=== PATIENT | male | born 1965 | race Caucasian/White ===

== ENCOUNTER → 2020-05-22 09:03 | Outpatient (BNVA) | payer MEDICARE, MEDICAID, SELFPAY | PROVIDERS: PCP Family Medicine; Referring Provider Family Medicine; Visit Provider Dietitian, Registered | DX: Z76.89 Persons encountering health services in other specified circumstances (principal) ==

== ENCOUNTER → 2020-07-26 08:51 | Outpatient (BNVA) | payer MEDICARE, MEDICAID, SELFPAY | PROVIDERS: PCP Family Medicine; Visit Provider Dietitian, Registered | DX: Z76.89 Persons encountering health services in other specified circumstances (principal) ==

== ENCOUNTER → 2020-09-05 11:26 | Outpatient (REF) | payer MEDICARE, MEDICAID, SELFPAY ==
--- NOTE | 2020-09-05 11:37 | ECG_ITS ---
Test Reason : DIABETES Blood Pressure : / mmHG Vent. Rate : 066 BPM Atrial Rate : 066 BPM P-R Int : 136 ms QRS Dur : 090 ms QT Int : 410 ms P-R-T Axes : 053 -21 052 degrees QTc Int : 429 ms Normal sinus rhythm Normal ECG When compared with ECG of 19-JUN-2016 09:29, No significant change was found Referred By: Charly Mendiola Electronically Signed By:ATILIO GONZALES
== END ==
LOC: HO.CARD 11:26
PROVIDERS: PCP Family Medicine; Visit Provider Family Medicine
DX: Z01.818 Encounter for other preprocedural examination (principal); E11.9 Type 2 diabetes mellitus without complications
CPT/HCPCS: 93005

== ENCOUNTER 2020-10-04 15:18 | Outpatient (REF) | payer MEDICARE, MEDICAID, SELFPAY | END 2020-10-04 15:19 | disposition home or self-care (01) | LOC: HO.LAB 15:18 | PROVIDERS: Visit Provider Internal Medicine | DX: Z20.822 Contact with and (suspected) exposure to COVID-19 (principal) | CPT/HCPCS: 36415; C9803; U0003; U0005 ==

== ENCOUNTER 2020-12-18 09:18 | Outpatient (REF) | payer MEDICARE, MEDICAID, SELFPAY ==
[2020-12-18 10:16] LABS: Estimated Average Glucose 103 mg/dL; Hemoglobin A1c % 5.2 %
[2020-12-18 10:27] LABS: Creatinine Urine 92.25 mg/dL; Microalbum/Creatinine Ratio Ur 17.3 ug/mg cr
[2020-12-18 10:33] LABS: Alanine Aminotransferase 22 U/L (0-40); Anion Gap 12 (12-20); Aspartate Amino Transferase 22 U/L (5-37); Blood Urea Nitrogen 26 mg/dL (9-16); Carbon Dioxide 26 mmol/L (22-29); Chloride 106 mmol/L (96-108); Cholesterol 157 mg/dL; Estimated Glomerular Filt Rate > 60; Glucose Fasting 104 mg/dL (60-99); HDL Cholesterol 47 mg/dL; LDL Cholesterol Calculated 92 mg/dl; Potassium 4.2 mmol/L (3.3-5.1); Sodium 140 mmol/L (135-145); Triglycerides 92 mg/dL
== END 2020-12-18 09:19 | disposition home or self-care (01) ==
LOC: HO.10HDL 09:18
PROVIDERS: Visit Provider Family Medicine
DX: E11.9 Type 2 diabetes mellitus without complications (principal); E78.00 Pure hypercholesterolemia, unspecified; I10 Essential (primary) hypertension; Z79.899 Other long term (current) drug therapy
CPT/HCPCS: 36415; 80051; 80061; 82043; 82550; 82565; 82947; 83036; 84450; 84460; 84520

== ENCOUNTER → 2021-01-31 08:59 | Outpatient (BNVA) | payer MEDICARE, MEDICAID, SELFPAY | PROVIDERS: PCP Family Medicine; Visit Provider Dietitian, Registered | DX: E11.9 Type 2 diabetes mellitus without complications (principal); Z68.26 Body mass index [BMI] 26.0-26.9, adult | CPT/HCPCS: 97803 ==

== ENCOUNTER 2021-03-13 13:04 | Outpatient (REF) | payer MEDICARE, MEDICAID, SELFPAY ==
--- NOTE | ~2021-03-13 | XR_ITS ---
EXAMINATION: XR FOOT, LEFT CLINICAL INFORMATION: Left foot swelling COMPARISON: None TECHNIQUE: AP, lateral, and oblique views of the left foot. FINDINGS: The bones and soft tissues are normal. No fracture. Alignment is anatomic. Small retrocalcaneal enthesophyte. Joint spaces are maintained. XR/XR foot LT min 3V IMPRESSION: Small retrocalcaneal enthesophyte.
== END 2021-03-13 13:05 | disposition home or self-care (01) ==
LOC: HO.XRAY 13:04
PROVIDERS: PCP Family Medicine; Visit Provider Family Medicine
DX: M79.89 Other specified soft tissue disorders (principal)
CPT/HCPCS: 73630

== ENCOUNTER 2021-04-23 09:19 | Outpatient (REF) | payer MEDICARE, MEDICAID, SELFPAY ==
[2021-04-23 11:02] LABS: Estimated Average Glucose 103 mg/dL; Hemoglobin A1c % 5.2 %
[2021-04-23 11:11] LABS: Alanine Aminotransferase 18 U/L (0-40); Cholesterol 137 mg/dL; Estimated Glomerular Filt Rate > 60; Glucose Fasting 92 mg/dL (60-99); HDL Cholesterol 40 mg/dL; LDL Cholesterol Calculated 75 mg/dl; Triglycerides 111 mg/dL
== END 2021-04-23 09:20 | disposition home or self-care (01) ==
LOC: HO.10HDL 09:19
PROVIDERS: Visit Provider Family Medicine
DX: E11.9 Type 2 diabetes mellitus without complications (principal); E78.00 Pure hypercholesterolemia, unspecified; Z79.899 Other long term (current) drug therapy
CPT/HCPCS: 36415; 80061; 82550; 82565; 82947; 83036; 84460

== ENCOUNTER → 2021-08-04 10:17 | Outpatient (BNVA) | payer MEDICARE, MEDICAID, SELFPAY | PROVIDERS: PCP Family Medicine; Visit Provider Dietitian, Registered | DX: E11.9 Type 2 diabetes mellitus without complications (principal) | CPT/HCPCS: 97803 ==

== ENCOUNTER 2021-09-17 09:01 | Outpatient (REF) | payer MEDICARE, MEDICAID, SELFPAY ==
[2021-09-17 10:37] LABS: Estimated Average Glucose 105 mg/dL; Hemoglobin A1c % 5.3 %
[2021-09-17 10:46] LABS: Alanine Aminotransferase 24 U/L (0-40); Anion Gap 10 (12-20); Aspartate Amino Transferase 24 U/L (5-37); Blood Urea Nitrogen 23 mg/dL (9-16); Carbon Dioxide 29 mmol/L (22-29); Chloride 106 mmol/L (96-108); Estimated Glomerular Filt Rate > 60; Glucose Fasting 97 mg/dL (60-99); Potassium 4.3 mmol/L (3.3-5.1); Sodium 141 mmol/L (135-145)
== END 2021-09-17 09:02 | disposition home or self-care (01) ==
LOC: HO.10HDL 09:01
PROVIDERS: Visit Provider Family Medicine
DX: I10 Essential (primary) hypertension (principal); E11.9 Type 2 diabetes mellitus without complications; K75.81 Nonalcoholic steatohepatitis (NASH)
CPT/HCPCS: 36415; 80051; 82565; 82947; 83036; 84450; 84460; 84520

== ENCOUNTER 2021-11-06 10:09 | Outpatient (REF) | payer MEDICARE, MEDICAID, SELFPAY ==
[2021-11-06 10:57] LABS: COVID-19 Test Negative (Negative)
== END 2021-11-06 10:10 | disposition home or self-care (01) ==
LOC: HO.LAB 10:09
PROVIDERS: Visit Provider Internal Medicine
DX: Z20.822 Contact with and (suspected) exposure to COVID-19 (principal)
CPT/HCPCS: 87635; C9803

== ENCOUNTER 2021-11-21 12:47 | Outpatient (REF) | payer MEDICARE, MEDICAID, SELFPAY ==
--- NOTE | ~2021-11-21 | XR_ITS ---
EXAMINATION: 1. RADIOGRAPHS CHEST 2. RADIOGRAPHS LUMBAR SPINE CLINICAL INFORMATION: Lumbar spine x-rays 05/17/2012 COMPARISON: None TECHNIQUE: 2 views of the chest and 5 views of the lumbar spine were obtained. FINDINGS: Chest: Cardiac silhouette is normal in size. The lungs are well aerated. There is no lobar consolidation. No pleural effusion or pneumothorax. Mild degenerative changes of the thoracic spine. Lumbar spine: 5 nonrib-bearing lumbar vertebral bodies are visualized. Alignment of the lumbar spine is within normal limits. Lumbar vertebral body heights are maintained. There is mild narrowing of the L4/L5 and L5/S1 disc space heights. Mild degenerative changes of the posterior elements of the lower lumbar spine. Small pelvic calcifications are likely vascular in nature. XR/XR chest 2V IMPRESSION: -No acute pulmonary pathology. -Mild degenerative changes of the lower lumbar spine.
--- NOTE | ~2021-11-21 | XR_ITS ---
EXAMINATION: 1. RADIOGRAPHS CHEST 2. RADIOGRAPHS LUMBAR SPINE CLINICAL INFORMATION: Lumbar spine x-rays 05/17/2012 COMPARISON: None TECHNIQUE: 2 views of the chest and 5 views of the lumbar spine were obtained. FINDINGS: Chest: Cardiac silhouette is normal in size. The lungs are well aerated. There is no lobar consolidation. No pleural effusion or pneumothorax. Mild degenerative changes of the thoracic spine. Lumbar spine: 5 nonrib-bearing lumbar vertebral bodies are visualized. Alignment of the lumbar spine is within normal limits. Lumbar vertebral body heights are maintained. There is mild narrowing of the L4/L5 and L5/S1 disc space heights. Mild degenerative changes of the posterior elements of the lower lumbar spine. Small pelvic calcifications are likely vascular in nature. XR/XR lumbar spine 4V min IMPRESSION: -No acute pulmonary pathology. -Mild degenerative changes of the lower lumbar spine.
== END 2021-11-21 12:48 | disposition home or self-care (01) ==
LOC: HO.XRAY 12:47
PROVIDERS: PCP Family Medicine; Visit Provider Family Medicine
DX: M54.50 Low back pain, unspecified (principal); F17.200 Nicotine dependence, unspecified, uncomplicated
CPT/HCPCS: 71046; 72110

== ENCOUNTER 2022-01-15 08:52 | Outpatient (REF) | payer MEDICARE, MEDICAID, SELFPAY ==
[2022-01-15 09:05] LABS: MANUAL DIFF FLAG NO
[2022-01-15 09:44] LABS: Basophils Absolute Auto 0.1 X10*3/uL (0.0-0.2); Basophils Percent Auto 0.7 % (0-2); Eosinophils Absolute Auto 0.2 X10*3/uL (0.0-0.4); Eosinophils Percent Auto 2.5 % (0-4); Hematocrit 41.2 % (42.0-52.0); Hemoglobin 14.1 g/dl (14.0-18.0); Imm Gran Abs Auto 0.02 X10*3/uL (0.00-0.03); Imm Gran Pct Auto 0.3 % (0.0-0.4); Lymphocytes Absolute Auto 2.7 X10*3/uL (1.2-4.9); Lymphocytes Percent Auto 39.2 % (20-40); Mean Corpuscular HGB Conc 34.2 g/dl (31.0-36.0); Mean Corpuscular Hemoglobin 29.9 pg (27.0-33.0); Mean Corpuscular Volume 87.5 fL (80.0-98.0); Mean Platelet Volume 11.4 fL (9.4-12.4); Monocytes Absolute Auto 0.5 X10*3/uL (0.1-1.2); Monocytes Percent Auto 7.5 % (2-11); Neutrophils Absolute Auto 3.4 x10*3/uL (2.0-8.3); Neutrophils Percent Auto 49.8 % (45-73); Platelet Count 151 X10*3/uL (160-400); Red Blood Count 4.71 X10*6/uL (4.60-5.80); Red Cell Distribution Width 13.9 % (11.0-16.0); White Blood Count 6.8 X10*3/uL (4.8-10.8)
[2022-01-15 09:46] LABS: Estimated Average Glucose 105 mg/dL; Hemoglobin A1c % 5.3 %
[2022-01-15 10:18] LABS: Cholesterol 224 mg/dL; Glucose Fasting 102 mg/dL (60-99); HDL Cholesterol 41 mg/dL; LDL Cholesterol Calculated 166 mg/dl; Triglycerides 88 mg/dL
[2022-01-15 10:27] LABS: Creatinine Urine 70.09 mg/dL; Microalbum/Creatinine Ratio Ur 7.1 ug/mg cr
== END 2022-01-15 08:53 | disposition home or self-care (01) ==
LOC: HO.LAB 08:52
PROVIDERS: PCP Family Medicine; Visit Provider Family Medicine
DX: E78.00 Pure hypercholesterolemia, unspecified (principal); D64.9 Anemia, unspecified; E11.9 Type 2 diabetes mellitus without complications
CPT/HCPCS: 36415; 80061; 82043; 82947; 83036; 85025

== ENCOUNTER → 2022-01-19 10:11 | Outpatient (BNVA) | payer MEDICARE, MEDICAID, SELFPAY | PROVIDERS: PCP Family Medicine; Visit Provider Dietitian, Registered | DX: E11.9 Type 2 diabetes mellitus without complications (principal) | CPT/HCPCS: 97803 ==

== ENCOUNTER 2022-03-03 08:42 | Outpatient (REF) | payer MEDICARE, MEDICAID, SELFPAY ==
[2022-03-03 10:42] LABS: MANUAL DIFF FLAG NO
[2022-03-03 10:48] LABS: Basophils Absolute Auto 0.1 X10*3/uL (0.0-0.2); Basophils Percent Auto 0.6 % (0-2); Eosinophils Absolute Auto 0.2 X10*3/uL (0.0-0.4); Eosinophils Percent Auto 2.2 % (0-4); Hematocrit 41.4 % (42.0-52.0); Hemoglobin 13.9 g/dl (14.0-18.0); Imm Gran Abs Auto 0.02 X10*3/uL (0.00-0.03); Imm Gran Pct Auto 0.2 % (0.0-0.4); Lymphocytes Absolute Auto 3.5 X10*3/uL (1.2-4.9); Lymphocytes Percent Auto 43.5 % (20-40); Mean Corpuscular HGB Conc 33.6 g/dl (31.0-36.0); Mean Corpuscular Hemoglobin 29.4 pg (27.0-33.0); Mean Corpuscular Volume 87.5 fL (80.0-98.0); Mean Platelet Volume 11.7 fL (9.4-12.4); Monocytes Absolute Auto 0.6 X10*3/uL (0.1-1.2); Neutrophils Absolute Auto 3.7 x10*3/uL (2.0-8.3); Neutrophils Percent Auto 46.5 % (45-73); Platelet Count 131 X10*3/uL (160-400); Red Blood Count 4.73 X10*6/uL (4.60-5.80); Red Cell Distribution Width 13.8 % (11.0-16.0); White Blood Count 8.1 X10*3/uL (4.8-10.8)
[2022-03-03 10:56] LABS: Estimated Average Glucose 105 mg/dL; Hemoglobin A1c % 5.3 %
[2022-03-03 10:59] LABS: Alanine Aminotransferase 21 U/L (0-40); Albumin Level 4.5 g/dL (3.5-5.0); Alkaline Phosphatase 71 U/L (39-117); Anion Gap 13 (12-20); Aspartate Amino Transferase 22 U/L (5-37); Bilirubin Total 0.4 mg/dL (0.0-1.0); Blood Urea Nitrogen 21 mg/dL (9-16); Calcium 9.7 mg/dL (8.4-10.2); Carbon Dioxide 25 mmol/L (22-29); Chloride 105 mmol/L (96-108); Cholesterol 231 mg/dL; Estimated Glomerular Filt Rate > 60; Glucose Fasting 95 mg/dL (60-99); HDL Cholesterol 40 mg/dL; LDL Cholesterol Calculated 168 mg/dl; Potassium 4.2 mmol/L (3.3-5.1); Sodium 139 mmol/L (135-145); Total Protein 7.5 g/dL (6.5-8.0); Triglycerides 116 mg/dL
== END 2022-03-03 08:43 | disposition home or self-care (01) ==
LOC: HO.10HDL 08:42
PROVIDERS: Visit Provider Family Medicine
DX: E11.9 Type 2 diabetes mellitus without complications (principal); E78.00 Pure hypercholesterolemia, unspecified; R55 Syncope and collapse
CPT/HCPCS: 36415; 80053; 80061; 83036; 85025

== ENCOUNTER 2022-03-31 12:12 | Outpatient (REF) | payer MEDICARE, MEDICAID, SELFPAY ==
--- NOTE | ~2022-03-31 | XR_ITS ---
EXAMINATION: XR CERVICAL SPINE CLINICAL INFORMATION: Right arm numbness, radiculopathy. COMPARISON: MR cervical spine 06/02/2006. TECHNIQUE: The cervical spine is imaged in 8 views. FINDINGS: Normal cervical lordosis. Vertebral bodies normal in height. No cervical vertebral compression, spondylolisthesis, destructive process, or prevertebral soft tissue swelling. Odontoid appears intact. There are degenerative disc changes with disc narrowing and anterior and posterior vertebral spurring C5-C6 and greater at C6-C7. Oblique view show bilateral foraminal spurring at these levels and possibly right side C4-C5 as well. No cervical rib. XR/XR cervical spine min 6V IMPRESSION: Degenerative disc changes C5-C6 and C6-C7. Bilateral foraminal spurring C5-C6 and C6-C7, probable right C4-C5.
== END 2022-03-31 12:13 | disposition home or self-care (01) ==
LOC: HO.XRAY 12:12
PROVIDERS: PCP Family Medicine; Visit Provider Family Medicine
DX: R20.0 Anesthesia of skin (principal); M54.10 Radiculopathy, site unspecified
CPT/HCPCS: 72052

== ENCOUNTER 2022-04-06 15:44 | Outpatient (REF) | payer MEDICARE, MEDICAID, SELFPAY ==
--- NOTE | ~2022-04-06 | XR_ITS ---
EXAMINATION: XR CHEST CLINICAL INFORMATION: Smoker COMPARISON: 11/21/2021 TECHNIQUE: 2 views of the chest were obtained. FINDINGS: The lungs are well expanded. There is no focal consolidation, edema, or effusion. Probable calcified granuloma at the right base, unchanged. No pneumothorax. The cardiomediastinal silhouette is within normal limits of size with a calcified aorta. No acute osseous abnormality. XR/XR chest 2V IMPRESSION: No acute pulmonary finding.
[2022-04-06 17:16] LABS: Blood Urea Nitrogen 22 mg/dL (9-16); Estimated Glomerular Filt Rate > 60
[2022-04-06 17:52] LABS: Erythrocyte Sedimentation Rate 14 MM/HR (0-15)
== END 2022-04-06 15:45 | disposition home or self-care (01) ==
LOC: HO.XRAY 15:44
PROVIDERS: PCP Family Medicine; Visit Provider Family Medicine
DX: G62.9 Polyneuropathy, unspecified (principal); F17.200 Nicotine dependence, unspecified, uncomplicated
CPT/HCPCS: 36415; 71046; 82565; 84520; 85652

== ENCOUNTER 2022-06-26 11:38 | Outpatient (REF) | payer MEDICARE, MEDICAID, SELFPAY ==
[2022-06-26 12:20] LABS: COVID-19 Test Negative (Negative); IDNOW Serial# 16C4AD1C
== END 2022-06-26 11:39 | disposition home or self-care (01) ==
LOC: HO.LAB 11:38
PROVIDERS: Visit Provider Internal Medicine
DX: Z20.822 Contact with and (suspected) exposure to COVID-19 (principal)
CPT/HCPCS: 87635; C9803

== ENCOUNTER → 2022-07-20 10:01 | Outpatient (BNVA) | payer MEDICARE, MEDICAID, SELFPAY | PROVIDERS: PCP Family Medicine; Visit Provider Dietitian, Registered | DX: E11.9 Type 2 diabetes mellitus without complications (principal); Z71.3 Dietary counseling and surveillance | CPT/HCPCS: 97803 ==

== ENCOUNTER 2022-09-23 07:34 | Outpatient (REF) | payer MEDICARE, MEDICAID, SELFPAY ==
[2022-09-23 07:45] LABS: MANUAL DIFF FLAG NO
[2022-09-23 08:11] LABS: Basophils Absolute Auto 0.1 X10*3/uL (0.0-0.2); Eosinophils Absolute Auto 0.2 X10*3/uL (0.0-0.4); Eosinophils Percent Auto 2.9 % (0-4); Hematocrit 40.7 % (42.0-52.0); Hemoglobin 13.8 g/dl (14.0-18.0); Imm Gran Abs Auto 0.02 X10*3/uL (0.00-0.03); Imm Gran Pct Auto 0.3 % (0.0-0.4); Lymphocytes Percent Auto 48.7 % (20-40); Mean Corpuscular HGB Conc 33.9 g/dl (31.0-36.0); Mean Corpuscular Hemoglobin 29.7 pg (27.0-33.0); Mean Corpuscular Volume 87.5 fL (80.0-98.0); Mean Platelet Volume 11.5 fL (9.4-12.4); Monocytes Absolute Auto 0.4 X10*3/uL (0.1-1.2); Monocytes Percent Auto 7.1 % (2-11); Neutrophils Absolute Auto 2.5 x10*3/uL (2.0-8.3); Platelet Count 126 X10*3/uL (160-400); Red Blood Count 4.65 X10*6/uL (4.60-5.80); White Blood Count 6.2 X10*3/uL (4.8-10.8)
[2022-09-23 08:16] LABS: Estimated Average Glucose 111 mg/dL; Hemoglobin A1c % 5.5 %
[2022-09-23 08:29] LABS: Alanine Aminotransferase 17 U/L (0-40); Aspartate Amino Transferase 19 U/L (5-37); Estimated Glomerular Filt Rate > 60; Glucose Fasting 94 mg/dL (60-99)
== END 2022-09-23 07:35 | disposition home or self-care (01) ==
LOC: HO.LAB 07:34
PROVIDERS: PCP Family Medicine; Visit Provider Family Medicine
DX: E11.9 Type 2 diabetes mellitus without complications (principal); R53.83 Other fatigue; K75.81 Nonalcoholic steatohepatitis (NASH)
CPT/HCPCS: 36415; 82565; 82947; 83036; 84134; 84450; 84460; 85025

== ENCOUNTER 2023-04-07 08:32 | Outpatient (REF) | payer MEDICARE, MEDICAID, SELFPAY ==
[2023-04-07 10:15] LABS: MANUAL DIFF FLAG NO
[2023-04-07 10:22] LABS: Basophils Percent Auto 0.7 % (0-2); Eosinophils Absolute Auto 0.2 X10*3/uL (0.0-0.4); Eosinophils Percent Auto 2.7 % (0-4); Hematocrit 42.4 % (42.0-52.0); Hemoglobin 14.1 g/dl (14.0-18.0); Lymphocytes Absolute Auto 2.6 X10*3/uL (1.2-4.9); Lymphocytes Percent Auto 43.9 % (20-40); Mean Corpuscular HGB Conc 33.3 g/dl (31.0-36.0); Mean Corpuscular Hemoglobin 29.9 pg (27.0-33.0); Mean Corpuscular Volume 89.8 fL (80.0-98.0); Mean Platelet Volume 11.7 fL (9.4-12.4); Monocytes Absolute Auto 0.4 X10*3/uL (0.1-1.2); Monocytes Percent Auto 6.8 % (2-11); Neutrophils Absolute Auto 2.7 x10*3/uL (2.0-8.3); Neutrophils Percent Auto 45.9 % (45-73); Platelet Count 129 X10*3/uL (160-400); Red Blood Count 4.72 X10*6/uL (4.60-5.80); White Blood Count 5.9 X10*3/uL (4.8-10.8)
[2023-04-07 10:42] LABS: Alanine Aminotransferase 17 U/L (0-40); Albumin Level 4.2 g/dL (3.5-5.0); Alkaline Phosphatase 67 U/L (39-117); Anion Gap 11 (12-20); Aspartate Amino Transferase 20 U/L (5-37); Bilirubin Total 0.4 mg/dL (0.0-1.0); Blood Urea Nitrogen 17 mg/dL (9-16); Calcium 10.1 mg/dL (8.4-10.2); Carbon Dioxide 27 mmol/L (22-29); Chloride 106 mmol/L (96-108); Estimated Glomerular Filt Rate > 60; Glucose Fasting 108 mg/dL (60-99); Potassium 4.1 mmol/L (3.3-5.1); Sodium 140 mmol/L (135-145); Total Protein 7.5 g/dL (6.5-8.0)
[2023-04-07 11:03] LABS: Erythrocyte Sedimentation Rate 20 MM/HR (0-15)
[2023-04-07 11:19] LABS: Estimated Average Glucose 103 mg/dL; Hemoglobin A1c % 5.2 % (<6.0)
== END 2023-04-07 08:33 | disposition home or self-care (01) ==
LOC: HO.10HDL 08:32
PROVIDERS: Visit Provider Family Medicine
DX: E11.9 Type 2 diabetes mellitus without complications (principal); R15.9 Full incontinence of feces; R53.1 Weakness
CPT/HCPCS: 36415; 80053; 83036; 85025; 85652

== ENCOUNTER 2023-04-21 15:54 | Outpatient (REF) | payer MEDICARE, MEDICAID, SELFPAY ==
[2023-04-23 16:09] LABS: Immunoglobulin A 230 mg/dL (47-310)
[2023-04-23 18:08] LABS: Transglutaminase Ab IgG <1.0 U/mL; Transglutaminase IgA <1.0 U/mL
[2023-04-24 12:39] LABS: Endomysial IgA Antibody Negative (Negative)
[2023-04-26 07:04] LABS: Gliadin Deamidated IgA Ab 2.5 U/mL; Gliadin Deamidated IgG Ab <1.0 U/mL
== END 2023-04-21 15:55 | disposition home or self-care (01) ==
LOC: HO.LAB 15:54
PROVIDERS: PCP Family Medicine; Visit Provider Internal Medicine
DX: R19.8 Other specified symptoms and signs involving the digestive system and abdomen (principal); R19.4 Change in bowel habit
CPT/HCPCS: 36415; 82784; 86231; 86258; 86364

== ENCOUNTER 2023-05-05 13:04 | Outpatient (REF) | payer MEDICARE, MEDICAID, SELFPAY ==
--- NOTE | ~2023-05-05 | XR_ITS ---
EXAMINATION: XR LUMBOSACRAL SPINE CLINICAL INFORMATION: Right leg pain and numbness COMPARISON: Lumbar spine radiograph from 11/21/2021 TECHNIQUE: Three views of the lumbosacral spine. FINDINGS: 5 nonrib-bearing lumbar-type vertebral bodies. No acute visible fracture or dislocation. Mild multilevel degenerative changes greatest at L5-S1 disc space narrowing, endplate sclerosis, osteophyte formation, and lower lumbar spine facet arthropathy. Vertebral body heights and spaces are otherwise maintained. Posterior elements are intact. Paraspinal soft tissues are unremarkable. Atherosclerotic calcifications abdominal aorta. Bowel gas is unremarkable. Pelvic phleboliths are visualized. XR/XR lumbar spine 2-3V IMPRESSION: 1. No acute visible fracture or dislocation. 2. Mild multilevel degenerative changes greatest at L5-S1.
== END 2023-05-05 13:05 | disposition home or self-care (01) ==
LOC: HO.XRAY 13:04
PROVIDERS: PCP Family Medicine; Visit Provider Family Medicine
DX: R20.0 Anesthesia of skin (principal); M79.604 Pain in right leg
CPT/HCPCS: 72100

== ENCOUNTER 2023-07-19 07:28 | Day surgery (SDC) | payer MEDICARE, MEDICAID, SELFPAY ==
--- NOTE | 2023-07-16 10:14 | HO.ANESPROP2 ---
Documented by User: Autumn Johnson NP 07/16/23 10:14 HPI - Anesthesia Eval Consult details Narrative: 58yo M for Colonoscopy PMFSH Active Problems Active Problems: All Active Problems (Updated 07/16/23 @ 08:59 by Berkley Pierre RN) Diabetes (Acute) Past Medical History Medical History Acute insomnia GERD (gastroesophageal reflux disease) Diabetes Learning disability Hyperlipidemia Anxiety Depression Surgical History Surgical History History of back surgery History of oral surgery History of colonoscopy Social History Social History Advance Directives: No Advance Directives Information Provided: Yes Meds Allergies Allergy/AdvReac Type Severity Reaction Status Date / Time Penicillins [PENICILLINS] Allergy Unknown UNKNOWN Unverified 05/02/20 15:26 bupropion [From WELLBUTRIN] AdvReac Unknown UNKNOWN Unverified 05/02/20 15:26 Home Medications Medication Instructions Recorded Confirmed Last Taken Type amantadine HCl 100 mg capsule 100 mg PO TID 07/16/23 Unknown History buspirone 10 mg tablet 10 mg PO QAM 07/16/23 Unknown History buspirone 15 mg tablet 15 mg PO BEDTIME 07/16/23 Unknown History fluoxetine 20 mg capsule 20 mg PO DAILY 07/16/23 Unknown History fluoxetine 40 mg capsule 40 mg PO QAM 07/16/23 Unknown History gabapentin 600 mg tablet 600 mg PO BEDTIME 07/16/23 Unknown History melatonin 10 mg capsule 10 mg PO BEDTIME 07/16/23 Unknown History metformin 500 mg tablet 500 mg PO BID 07/16/23 Unknown History omeprazole 40 mg capsule,delayed 40 mg PO DAILY 07/16/23 Unknown History release omeprazole 40 mg capsule,delayed 40 mg PO DAILY 07/16/23 Unknown History release risperidone 2 mg tablet 2 mg PO BEDTIME 07/16/23 Unknown History simvastatin 10 mg tablet 10 mg PO BEDTIME 07/16/23 Unknown History trazodone 100 mg tablet 100 mg PO BEDTIME 07/16/23 Unknown History trazodone 50 mg tablet 50 mg PO BEDTIME 07/16/23 Unknown History Assessment and Plan Assessment Anesthesia Assessment: Chart Reviewed Documented by User: Imelda Reeves MD 07/19/23 08:33 PMF Past Medical History Medical History Acute insomnia GERD (gastroesophageal reflux disease) Diabetes Learning disability Hyperlipidemia Anxiety Depression Family History Family history of problems with anesthesia: No Surgical History Surgical History History of back surgery History of oral surgery History of colonoscopy History of Problems with Anesthesia: No Social History Social History Advance Directives: No Advance Directives Information Provided: Yes Meds Allergies Allergy/AdvReac Type Severity Reaction Status Date / Time Penicillins [PENICILLINS] Allergy Unknown UNKNOWN Unverified 05/02/20 15:26 bupropion [From WELLBUTRIN] AdvReac Unknown UNKNOWN Unverified 05/02/20 15:26 Home Medications Medication Instructions Recorded Confirmed Last Taken Type amantadine HCl 100 mg capsule 100 mg PO TID 07/16/23 Unknown History buspirone 10 mg tablet 10 mg PO QAM 07/16/23 Unknown History buspirone 15 mg tablet 15 mg PO BEDTIME 07/16/23 Unknown History fluoxetine 20 mg capsule 20 mg PO DAILY 07/16/23 Unknown History fluoxetine 40 mg capsule 40 mg PO QAM 07/16/23 Unknown History gabapentin 600 mg tablet 600 mg PO BEDTIME 07/16/23 Unknown History melatonin 10 mg capsule 10 mg PO BEDTIME 07/16/23 Unknown History metformin 500 mg tablet 500 mg PO BID 07/16/23 Unknown History omeprazole 40 mg capsule,delayed 40 mg PO DAILY 07/16/23 Unknown History release omeprazole 40 mg capsule,delayed 40 mg PO DAILY 07/16/23 Unknown History release risperidone 2 mg tablet 2 mg PO BEDTIME 07/16/23 Unknown History simvastatin 10 mg tablet 10 mg PO BEDTIME 07/16/23 Unknown History trazodone 100 mg tablet 100 mg PO BEDTIME 07/16/23 Unknown History trazodone 50 mg tablet 50 mg PO BEDTIME 07/16/23 Unknown History Exam Height,Weight and Vital Signs: Height 5 ft 9 in Weight 79.379 kg Vital Signs Temp Pulse Resp BP Pulse Ox O2 Del Method 07/19/23 08:11 97 F 83 16 114/86 97 Room Air Pertinent Lab Results Pertinent Lab Results: Lab Results 07/19/23 Range/Units 08:01 POC Glucose 114 (60-115) mg/dL Airway Mallampati Class: III TM Dist: >3cm Neck ROM: Full Denture: Upper and Lower Heart: RRR Lungs: CTAB Assessment and Plan Assessment Anesthesia Assessment: Anesthesia Plan Discussed Final Anesthetic Review Family History of Problems with Anesthesia: No History of Problems with Anesthesia: No NPO: Yes ASA Class: II Final Preanesthetic Review: No Changes in Pt Med Stat, Meds/Allgs Chart Reviewed, Consent Obtained/Reviewed and Anes Risks/Benef Reviewed Patient Risk: Intermediate Procedure Risk: Low Assessment/Block/Sedation in SS: Assess/Block/Sedation-SS Anesthetic Plan Anesthetic Plan: MAC: Disposition: Standard PACU
[2023-07-19 08:05] LABS: Glucose, Whole Blood 114 mg/dL (60-115)
[2023-07-19 08:11] VITALS: BP 114/86; PULSE 83; RESP 16; TEMP 36.1; O2SAT 97; BMI 25.8
[2023-07-19] MEDS: Lactated Ringers 1,000 ML 100 ML IVCONT (08:30)
[2023-07-19 09:33] VITALS: BP 96/50; PULSE 62; RESP 16; TEMP 36.4; O2SAT 95
--- NOTE | 2023-07-19 09:40 | PM.OP ---
Brief Operative Note Date of Service: 07/19/23 Pre-op diagnosis: Change in BM's Post-op diagnosis: other (Diverticulosis, R/O microscopic colitis) Procedure: Colonoscopy to the cecum and TI with biopsies Surgeon: Merlin Levy MD Anesthesia: MAC Was an Business Excellence Manager used for this Procedure?: No Estimated blood loss (mL): 2.0 Pathology: other (A. Terminal ileum B. Ascending colon C. Descending colon) Condition: stable Disposition: PACU
[2023-07-19 09:48] VITALS: BP 110/64; PULSE 65; RESP 18; TEMP 36.6; O2SAT 95
--- NOTE | 2023-07-20 13:23 | OP_ITS ---
DATE OF SERVICE: 07/19/2023 SURGEON: Merlin Levy MD INDICATIONS: The patient presents for evaluation of irregular bowel movements and change in bowel habits. Full consent has been obtained from him for this, including risks of bleeding and perforation. PREOPERATIVE DIAGNOSIS: POSTOPERATIVE DIAGNOSIS: PROCEDURE PERFORMED: Colonoscopy to the cecum and terminal ileum with biopsies. ESTIMATED BLOOD LOSS: COMPLICATIONS: ANESTHESIA: Medication used: Monitored anesthesia care. ASSISTANTS: SPECIMENS: PREOPERATIVE DIAGNOSES: Irregular bowel movements and change in bowel habits. POSTOPERATIVE DIAGNOSES: Irregular bowel movements and change in bowel habits, rule out microscopic colitis, sigmoid diverticulosis, internal hemorrhoids. DESCRIPTION OF PROCEDURE: The patient was placed in the left lateral decubitus position. The digital rectal exam revealed no abnormalities. Sphincter tone was somewhat diminished. The Olympus video pediatric colonoscope was entered into the rectum and advanced easily to the cecum. Once in the cecum, I did identify a normal-appearing cecal pouch with appendiceal orifice and a normal-appearing ileocecal valve. The terminal ileum was cannulated and appeared normal. Biopsies were obtained from the ileum. The scope was withdrawn back in the colon. The scope was slowly withdrawn assessing all mucosal surfaces carefully. Preparation was excellent. Again, the cecum was completely normal as was the ileocecal valve. I did not visualize any sign of polyps, colitis, nor angiodysplasia. Random biopsies were obtained in the ascending and descending colon. There was a mild amount of sigmoid diverticulosis. In the rectum, scope was retroflexed visualizing internal hemorrhoids, but no other pathology. The rectal mucosa appeared normal. Scope was straightened and withdrawn from the patient. He tolerated the procedure well and was returned to the recovery area in stable condition. IMPRESSION: 1. Diverticulosis. 2. Internal hemorrhoids. 3. Rule out microscopic colitis. PLAN: The results of the biopsies will be checked. Given the exam being negative for polyps, I would recommend a repeat colonoscopy in 10 years for further screening. In regard to his change in bowel habits, he did have lab work earlier this year that was negative for celiac disease. Assuming these biopsies are normal, I would continue to treat him symptomatically and I have recommended fiber, Imodium p.r.n., and to avoid any significant amounts of caffeine and dairy. Of note, he is on metformin and that can sometimes make the bowel movements loose and irregular and that may need to be either adjusted or changed to a different medication altogether to see if that would give him some relief as well. MD MITA Bynum/TAIWO / [id number]
== END 2023-07-19 10:20 | disposition home or self-care (01) ==
PROVIDERS: PCP Family Medicine; Visit Provider Internal Medicine
PROC: 0DJD8ZZ Inspection of Lower Intestinal Tract, Via Natural or Artificial Opening Endoscopic (ICD-10-PCS; CPT 45378; principal; 2023-07-19 08:30)
DX: R19.4 Change in bowel habit (principal); R15.9 Full incontinence of feces; K57.30 Diverticulosis of large intestine without perforation or abscess without bleeding; K64.8 Other hemorrhoids; E11.9 Type 2 diabetes mellitus without complications; K21.9 Gastro-esophageal reflux disease without esophagitis; F81.9 Developmental disorder of scholastic skills, unspecified; E78.5 Hyperlipidemia, unspecified; F32.A Depression, unspecified; F41.9 Anxiety disorder, unspecified; G47.09 Other insomnia; Z88.0 Allergy status to penicillin; Z79.84 Long term (current) use of oral hypoglycemic drugs; Z79.899 Other long term (current) drug therapy; Z88.8 Allergy status to other drugs, medicaments and biological substances
CPT/HCPCS: 45380; 82947; 88305; J2704

== ENCOUNTER 2023-08-28 08:09 | Outpatient (REF) | payer MEDICARE, MEDICAID, SELFPAY ==
[2023-08-28 09:08] LABS: Estimated Average Glucose 108 mg/dL; Hemoglobin A1c % 5.4 % (<6.0)
[2023-08-28 09:34] LABS: Creatinine Urine 148.41 mg/dL; Microalbum/Creatinine Ratio Ur 11.4 ug/mg cr (<30)
[2023-08-28 09:44] LABS: Alanine Aminotransferase 22 U/L (0-40); Anion Gap 14 (12-20); Aspartate Amino Transferase 23 U/L (5-37); Blood Urea Nitrogen 20 mg/dL (9-16); Carbon Dioxide 24 mmol/L (22-29); Chloride 107 mmol/L (96-108); Estimated Glomerular Filt Rate > 60; Glucose Fasting 114 mg/dL (60-99); Potassium 4.2 mmol/L (3.3-5.1); Sodium 141 mmol/L (135-145)
== END 2023-08-28 08:10 | disposition home or self-care (01) ==
LOC: HO.LAB 08:09
PROVIDERS: PCP Family Medicine; Visit Provider Family Medicine
DX: E11.9 Type 2 diabetes mellitus without complications (principal); E78.00 Pure hypercholesterolemia, unspecified; Z79.899 Other long term (current) drug therapy
CPT/HCPCS: 36415; 80051; 82043; 82550; 82565; 82570; 82947; 83036; 84450; 84460; 84520

== ENCOUNTER 2024-01-21 08:39 | Outpatient (REF) | payer MEDICARE, MEDICAID, SELFPAY ==
[2024-01-21 10:53] LABS: MANUAL DIFF FLAG NO
[2024-01-21 11:04] LABS: Basophils Absolute Auto 0.1 X10*3/uL (0.0-0.2); Basophils Percent Auto 0.9 % (0-2); Eosinophils Absolute Auto 0.1 X10*3/uL (0.0-0.4); Eosinophils Percent Auto 2.2 % (0-4); Hematocrit 41.6 % (42.0-52.0); Hemoglobin 14.3 g/dl (14.0-18.0); Imm Gran Abs Auto 0.01 X10*3/uL (0.00-0.03); Imm Gran Pct Auto 0.2 % (0.0-0.4); Lymphocytes Absolute Auto 2.5 X10*3/uL (1.2-4.9); Mean Corpuscular HGB Conc 34.4 g/dl (31.0-36.0); Mean Corpuscular Hemoglobin 30.2 pg (27.0-33.0); Mean Corpuscular Volume 87.9 fL (80.0-98.0); Mean Platelet Volume 10.9 fL (9.4-12.4); Monocytes Absolute Auto 0.5 X10*3/uL (0.1-1.2); Monocytes Percent Auto 8.4 % (2-11); Neutrophils Absolute Auto 2.2 x10*3/uL (2.0-8.3); Neutrophils Percent Auto 41.3 % (45-73); Platelet Count 131 X10*3/uL (160-400); Red Blood Count 4.73 X10*6/uL (4.60-5.80); Red Cell Distribution Width 13.6 % (11.0-16.0); White Blood Count 5.4 X10*3/uL (4.8-10.8)
[2024-01-21 11:11] LABS: Creatinine Urine 187.92 mg/dL; Estimated Average Glucose 126 mg/dL; Microalbum/Creatinine Ratio Ur 7.4 ug/mg cr (<30)
[2024-01-21 11:39] LABS: Cholesterol 177 mg/dL (<200); Glucose Fasting 116 mg/dL (60-99); HDL Cholesterol 46 mg/dL (>40); LDL Cholesterol Calculated 112 mg/dL (<100); Triglycerides 95 mg/dL (<150)
[2024-02-07 19:44] LABS: FIB-ALT 25 U/L (9-46); FIB-Alpha-2-Macroglobulin 294 mg/dL (106-279); FIB-Apolipoprotein A1 153 mg/dL (94-176); FIB-GGT 31 U/L (3-85); FIB-Haptoglobin 89 mg/dL (43-212); FIB-Total Bilirubin 0.3 mg/dL (0.2-1.2); Liver Fibrosis Score 0.39; Liver Fibrosis Stage F1-F2; Nec Inflam Act Grade A0; Nec Inflam Act Score 0.13
== END 2024-01-21 08:40 | disposition home or self-care (01) ==
LOC: HO.10HDL 08:39
PROVIDERS: Visit Provider Family Medicine
DX: E11.9 Type 2 diabetes mellitus without complications (principal); K75.81 Nonalcoholic steatohepatitis (NASH); R53.83 Other fatigue
CPT/HCPCS: 36415; 80061; 81596; 82043; 82570; 82947; 83036; 85025

== ENCOUNTER 2024-04-21 14:32 | Outpatient (REF) | payer MEDICARE, MEDICAID, SELFPAY ==
--- NOTE | ~2024-04-21 | XR_ITS ---
EXAMINATION: XR FINGER, LEFT CLINICAL INFORMATION: Left thumb injury COMPARISON: None available. TECHNIQUE: Three views of the left thumb. FINDINGS: The bones and soft tissues are normal. No fracture. Alignment is anatomic. Joint spaces are maintained. XR/XR finger LT min 2V IMPRESSION: Normal finger radiographs. Electronically signed by: Sara Acuna MD 04/22/2024 05:36 PM EDT RP
== END 2024-04-21 14:33 | disposition home or self-care (01) ==
LOC: HO.XRAY 14:32
PROVIDERS: PCP Family Medicine; Visit Provider Family Medicine
DX: S69.92XD Unspecified injury of left wrist, hand and finger(s), subsequent encounter (principal)
CPT/HCPCS: 73140

== ENCOUNTER 2024-08-21 09:33 | Outpatient (REF) | payer MEDICARE, MEDICAID, SELFPAY ==
--- NOTE | ~2024-08-21 | XR_ITS ---
EXAMINATION: XR KNEE, LEFT CLINICAL INFORMATION: PAIN COMPARISON: None available. TECHNIQUE: 3 views of the left knee. FINDINGS: No fracture or joint effusion. Alignment is anatomic. Joint spaces are maintained. No abnormal soft tissue calcification. XR/XR knee LT 3V IMPRESSION: Unremarkable left knee. Electronically signed by: Steven Daniel MD 08/21/2024 10:23 AM ARTI
[2024-08-21 10:26] LABS: MANUAL DIFF FLAG NO
[2024-08-21 10:51] LABS: Basophils Percent Auto 0.8 % (0-2); Eosinophils Absolute Auto 0.1 X10*3/uL (0.0-0.4); Eosinophils Percent Auto 2.7 % (0-4); Hematocrit 41.5 % (42.0-52.0); Hemoglobin 14.3 g/dl (14.0-18.0); Imm Gran Abs Auto 0.02 X10*3/uL (0.00-0.03); Imm Gran Pct Auto 0.4 % (0.0-0.4); Lymphocytes Percent Auto 41.4 % (20-40); Mean Corpuscular HGB Conc 34.5 g/dl (31.0-36.0); Mean Corpuscular Volume 87.2 fL (80.0-98.0); Mean Platelet Volume 11.6 fL (9.4-12.4); Monocytes Absolute Auto 0.4 X10*3/uL (0.1-1.2); Monocytes Percent Auto 8.4 % (2-11); Neutrophils Absolute Auto 2.3 x10*3/uL (2.0-8.3); Neutrophils Percent Auto 46.3 % (45-73); Platelet Count 106 X10*3/uL (160-400); Red Blood Count 4.76 X10*6/uL (4.60-5.80); Red Cell Distribution Width 14.2 % (11.0-16.0); White Blood Count 4.9 X10*3/uL (4.8-10.8)
[2024-08-21 11:20] LABS: Estimated Average Glucose 134 mg/dL; Hemoglobin A1C 167.4877 umol/L; Hemoglobin A1c % 6.3 % (<6.0); Total Hemoglobin (HGBA1C) 3689.5497 umol/L
[2024-08-21 11:41] LABS: Alanine Aminotransferase 44 U/L (0-40); Albumin Level 4.1 g/dL (3.5-5.0); Alkaline Phosphatase 81 U/L (39-117); Anion Gap 12 (12-20); Aspartate Amino Transferase 40 U/L (5-37); Bilirubin Total 0.3 mg/dL (0.0-1.0); Blood Urea Nitrogen 15 mg/dL (9-16); Calcium 9.6 mg/dL (8.4-10.2); Carbon Dioxide 23 mmol/L (22-29); Chloride 109 mmol/L (96-108); Estimated Glomerular Filt Rate > 60; Glucose Fasting 144 mg/dL (60-99); Potassium 4.2 mmol/L (3.3-5.1); Sodium 140 mmol/L (135-145); Total Protein 7.6 g/dL (6.5-8.0)
== END 2024-08-21 09:34 | disposition home or self-care (01) ==
LOC: HO.XRAY 09:33
PROVIDERS: PCP Family Medicine; Visit Provider Family Medicine
DX: E11.9 Type 2 diabetes mellitus without complications (principal); R53.83 Other fatigue; M25.562 Pain in left knee
CPT/HCPCS: 36415; 73562; 80053; 83036; 85025

== ENCOUNTER → 2024-08-21 09:50 | Outpatient (BNV) | payer MEDICARE, MEDICAID, SELFPAY | PROVIDERS: PCP Family Medicine; Visit Provider Radiology Diagnostic Radiology | DX: M25.562 Pain in left knee (principal) | CPT/HCPCS: 73562 ==

== ENCOUNTER 2024-08-29 06:14 | Outpatient (REF) | payer MEDICARE, MEDICAID, SELFPAY ==
--- NOTE | 2024-08-29 | EMG_ITS ---
Left tibial and peroneal motor studies were performed. Left superficial peroneal and sural sensory studies were performed, and tibial H-reflex was obtained. Paraspinal muscles were tested with a needle. 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 MD SCOT Garland/TAIWO / [id number]
== END 2024-08-29 06:15 | disposition home or self-care (01) ==
LOC: HO.NEURO 06:14
PROVIDERS: PCP Family Medicine; Visit Provider Family Medicine
DX: G57.82 Other specified mononeuropathies of left lower limb (principal)
CPT/HCPCS: 95886; 95909

== ENCOUNTER 2024-09-15 09:38 | Outpatient (REF) | payer MEDICARE, MEDICAID, SELFPAY ==
--- NOTE | ~2024-09-15 | CT_ITS ---
CLINICAL HISTORY: F17.210 - Nicotine dependence, cigarettes, uncomplicated CT lung cancer screening (LDCT) Comparison: None Technique: Axial CT images of the chest using low-dose technique. Referring provider counseled the patient on shared decision-making for LDCT screening. Additional counseling was provided on smoking cessation. Effective radiation dose total: DLP 50.5 mGycm, CTDIvol 1.6 mGy. Findings: Lung: Mild emphysema. 4 mm subpleural nodule of the right lower lobe series 4, image 34. Coronary artery calcifications: None Limited upper abdomen: Unremarkable Other: None Impression: LungRADS 2 - Benign Appearance: Continue annual screening with low dose Chest CT in 12 months. ##L2# Category 1: Normal; continue annual screening Category 2: Benign appearance or behavior, continue annual screening Category 3: Probably benign, [address] recommended Category 4A: Suspicious, [address] recommended; may consider PET/CT Category 4B: Suspicious, Additional diagnostics and/or tissue sampling recommended Category 4X: Suspicious, Additional diagnostics and/or tissue sampling recommended Category 0: Recalls (incomplete screen due to Incomplete coverage, Noise, Respiratory motion, Expiration, Obscured by acute abnormality) This document has been electronically signed by: Lambert Molina MD on 09/15/2024 13:33:33
== END 2024-09-15 09:39 | disposition home or self-care (01) ==
LOC: HO.CT 09:38
PROVIDERS: PCP Family Medicine; Visit Provider Physician Assistant Medical
DX: Z12.2 Encounter for screening for malignant neoplasm of respiratory organs (principal); F17.210 Nicotine dependence, cigarettes, uncomplicated
CPT/HCPCS: 71271

== ENCOUNTER → 2024-09-15 09:41 | Outpatient (BNV) | payer MEDICARE, MEDICAID, SELFPAY | PROVIDERS: PCP Family Medicine; Visit Provider Nuclear Medicine | DX: F17.210 Nicotine dependence, cigarettes, uncomplicated (principal) | CPT/HCPCS: 71271 ==

== ENCOUNTER 2025-02-02 08:57 | Outpatient (REF) | payer MEDICARE, MEDICAID, SELFPAY ==
--- OUTSIDE RECORDS SUMMARY | 2025-02-02 09:06 | XMS_ITS | Patient Health Record ---
Author Organization [facility] Address [address] [place] [id number] Care Team Providers Care Area Development Consultant Name Role Phone Charly Mendiola MD Primary Care Provider Merlin Shah [phone] Allergies Allergen (clinical drug ingredient) Drug/Non Drug Allergy documented on EMR Reaction Allergy Type Onset Date Status Penicillin Unknown Drug Allergy Active Wellbutrin seizures Drug Allergy Active Reason For Referral No Information Medications Medication SIG (Take, Route, Frequency, Duration) Notes Start Date End Date Status Omeprazole 40 MG 1 capsule 30 minutes before morning meal Orally Once a day for 30 day(s) Active Aspirin 81 81 MG 1 tablet Orally Once a day for 30 day(s) Not-Taking traZODone HCl 50 MG 1 tablet at bedtime as needed Orally Once a day for 30 day(s) Active Gabapentin 600 MG 1 tablet Orally Once a day for 30 day(s) Active Amantadine HCl 100 MG 1 tablet Orally on ce a day Active metFORMIN HCl ER 500 MG 1 tablet with ev ening meal Orally Once a day for 30 day(s) Active risperiDONE 2 MG 1 tablet Orally Once a day Active Simvastatin 80 MG TAKE 1 TABLET BY CORNELIUS TH ONCE A DAY Oral for 90 Active Melatonin 3 MG 1 tablet at bedtime as needed with food Orally Once a day Active busPIRone HCl 10 MG 1 tablet Orally once a day Active FLUoxetine HCl 60 MG 1 capsule Orally On ce a day Active Immunizations Vaccine Route Administration Date Status Comme nts Influenza Unknown 04/21/2023 Refused Problems Problem Type SNOMED Code ICD Code Onset Dates Problem Status W/U Status Risk Notes Problem 037765389 Gastro-esophagea l reflux disease without esophagitis (K21.9) Active confirmed Problem 893029477 Encounter for screening for malignant neoplasm of colon (Z12.11) Active confirmed Problem 95547400 Change in bowel habits (R19.4) Active confirmed Problem Diverticulosis o f large intestine without perforation or abscess without bleeding (K57.30) Active confirmed Problem Screening for malignant neoplasm of rectum (514997514) Encounter for screening for malignant neoplasm of rectum (Z12.12) Active confirmed Problem 12444904 Preprocedural examination (Z01.818) Active confirmed Problem 796656400 Irregular bowel habits (R19.8) Active confirmed Problem 295737992 Abdominal pain, generalized (R10.84) Active confirmed Problem 33175300 Incontinence of feces, unspecified fecal incontinence type (R15.9) Active confirmed Plan Of Treatment Pending Test Test Name Order Date CELIAC PANEL #10 04/21/2023 Pathology 07/19/2023 US abdomen complete 04/21/2023 Future Test Test Name Order Date COLONOSCOPY 09/29/2016 COLONOSCOPY 04/21/2023 Insurance Providers Payer Name Payer Address Payer Phone Subscriber Number Group Number Insured Name Patient Relationship to Insured Coverage Start Date Coverage End Date MEDICARE OF [place] [address] [place] [id number] PRUDENCIO, MICHAEL Self - patient is the insured MEDICAID OF [facility] [address] [place] [address] [id number] PRUDENCIOMICHAEL Naranjo Self - patient is the insured Medical (General) History Medical History History ICD Code GERD--EGD in 2008-small HH, mild gastrit is, no esophagitis, no Mccollum's Depression Anxiety Denies [place],CVA,Lung disease,renal disease Hyperlipidemia Negative screening colonoscopy in 2017, but with limited prep Learning Disabiliy/Cognitive delays Surgical History Surgery Date(Month/Year) Oral surgery--Gum surgery C-spine disc surgery
[2025-02-02 10:08] LABS: Estimated Average Glucose 154 mg/dL
[2025-02-02 10:42] LABS: Alanine Aminotransferase 56 U/L (0-40); Albumin Level 4.7 g/dL (3.5-5.0); Alkaline Phosphatase 84 U/L (39-117); Aspartate Amino Transferase 53 U/L (5-37); Bilirubin Direct 0.2 mg/dL (0.0-0.5); Bilirubin Total 0.5 mg/dL (0.0-1.0); Glucose Fasting 136 mg/dL (60-99)
[2025-02-13 16:54] LABS: FIB-ALT 33 U/L (9-46); FIB-Alpha-2-Macroglobulin 276 mg/dL (106-279); FIB-Apolipoprotein A1 146 mg/dL (94-176); FIB-GGT 34 U/L (3-70); FIB-Haptoglobin 75 mg/dL (43-212); FIB-Total Bilirubin 0.5 mg/dL (0.2-1.2); Liver Fibrosis Score 0.51; Liver Fibrosis Stage F2; Nec Inflam Act Grade A0-A1; Nec Inflam Act Score 0.22
== END 2025-02-02 08:58 | disposition home or self-care (01) ==
LOC: HO.LAB 08:57
PROVIDERS: PCP Family Medicine; Visit Provider Family Medicine
DX: K75.81 Nonalcoholic steatohepatitis (NASH) (principal); E11.9 Type 2 diabetes mellitus without complications
CPT/HCPCS: 36415; 80076; 81596; 82947; 83036

== ENCOUNTER 2025-02-12 10:15 | Emergency (ER) | payer MEDICARE, MEDICAID, SELFPAY ==
--- NOTE | ~2025-02-12 | XR_ITS ---
EXAMINATION: XR CHEST CLINICAL INFORMATION: chest pain COMPARISON: April 06, 2022. TECHNIQUE: 2 views of the chest were obtained. FINDINGS: No consolidation, pleural effusion or pneumothorax. 3 mm calcified pulmonary nodule right lower hemithorax. Mild pulmonary reticular pattern. No hyperinflation. Cardiomediastinal silhouette size is normal. Calcified plaque thoracic aorta. Multilevel thoracolumbar spondylosis. Kyphotic deformity apex at mid thoracic spine with a 20% likely old compression deformities. XR/XR chest 2V IMPRESSION: 3 mm granuloma, right lung. Consider chronic interstitial lung disease. Multilevel spondylosis. Electronically signed by: Shaquille Bay MD 02/12/2025 11:39 AM EDT
--- NOTE | 2025-02-12 10:19 | ECG_ITS ---
Test Reason : chest pain Blood Pressure : */* mmHG Vent. Rate : 65 BPM Atrial Rate : 65 BPM P-R Int : 132 ms QRS Dur : 82 ms QT Int : 410 ms P-R-T Axes : 45 -33 31 degrees QTcB Int : 426 ms Normal sinus rhythm Left axis deviation Abnormal ECG When compared with ECG of 05-Sep-2020 11:43, No significant change was found Referred By: Apple Villagran Electronically Signed By: FIGUEROA MAYERS MD
--- NOTE | 2025-02-12 11:22 | ED_ITS ---
HPI - General Adult General Chief complaint: Chest Pain Stated complaint: chest pain Time Seen by Provider: 02/12/25 13:30 Source: patient, RN notes reviewed and old records reviewed Mode of arrival: ambulatory Limitations: no limitations History of Present Illness ED Provider: Lisandro HPI narrative: Patient is a 59-year-old male with history of T2 DM, HLD, GERD, learning disability/cognitive delays, anxiety and depression presenting to the emergency department with complaint of chest pain which began on Wednesday while he was on his hands and knees. He reports pain began suddenly when he moved his left arm. States that pain radiates from his left chest to his left arm and increases with movement and palpation. His caregiver administered Tylenol with little relief. Denies shortness of breath or difficulty breathing, palpitations, dizziness or lightheadedness, fainting. MD complaint: chest pain Onset (ago): day(s) Related Data Home Medications ?Medication ?Instructions ?Recorded ?Confirmed amantadine HCl 100 mg capsule 100 mg PO TID 07/16/23 buspirone 10 mg tablet 10 mg PO QAM 07/16/23 buspirone 15 mg tablet 15 mg PO BEDTIME 07/16/23 fluoxetine 20 mg capsule 20 mg PO DAILY 07/16/23 fluoxetine 40 mg capsule 40 mg PO QAM 07/16/23 gabapentin 600 mg tablet 600 mg PO BEDTIME 07/16/23 melatonin 10 mg capsule 10 mg PO BEDTIME 07/16/23 metformin 500 mg tablet 500 mg PO BID 07/16/23 omeprazole 40 mg capsule,delayed 40 mg PO DAILY release omeprazole 40 mg capsule,delayed 40 mg PO DAILY release risperidone 2 mg tablet 2 mg PO BEDTIME 07/16/23 simvastatin 10 mg tablet 10 mg PO BEDTIME 07/16/23 trazodone 100 mg tablet 100 mg PO BEDTIME 07/16/23 trazodone 50 mg tablet 50 mg PO BEDTIME 07/16/23 Previous Rx's ?Medication ?Instructions ?Recorded cyclobenzaprine 5 mg tablet 5 mg PO TID PRN muscle spa sm #10 02/12/25 tabs lidocaine 5 % topical patch 1 patch topical DAILY #15 ea 02/12/25 Allergies Allergy/AdvReac Type Severity Reaction Status Date / Time Penicillins (PENICILLINS) Allergy Unknown UNKNOWN Unverified 02/12/25 11:27 bupropion (From WELLBUTRIN) AdvReac Unknown UNKNOWN Unverified 05/02/20 15:26 Review of Systems 2 Review of Systems: As per HPI Yes all other systems are reviewed and are negative Constitutional: Constitutional: Reports as per HPI [facility] Past Medical History Medical History (Updated 02/12/25 @ 13:52 by Flaca Mcmahon NP) Learning disability Type 2 diabetes mellitus (~10/2019) Hyperlipidemia GERD (gastroesophageal reflux disease) Nicotine dependence, cigarettes, uncomplicated Anxiety Depression Acute insomnia Surgical History (Updated 09/11/24 @ 13:43 by Opal Rosas PA-C) History of cervical spinal surgery History of oral surgery History of colonoscopy History of esophagogastroduodenoscopy (EGD) Social History Social History (Updated 09/15/24 @ 11:12 by Opal Rosas PA-C) Patient Tobacco Use Status: Current everyday Tobacco user Cigarette Packs Per Day: 0.5 Years Smoked: (onset 15yo, 1/2-1ppd x 44yrs, now 1/2ppd - 30pyh) Physical Exam ED Vital Signs: Vital Signs - 24 hr 02/12/25 11:23 02/12/25 13:35 Temperature 98.9 F Pulse Rate 64 61 Respiratory Rate 16 14 Blood Pressure 163/75 H Pulse Oximetry 96 96 Oxygen Delivery Method Room Air BMI result Body Mass Index 28.0 Vital signs have been reviewed and appear to be correct. Blood pressure normal. Heart rate normal. Respiratory rate normal. Temperature normal. Oxygen saturation normal. Const General: cooperative, healthy appearing and no acute distress Orientation/consciousness: oriented to person, oriented to place, oriented to time and patient oriented x3 Limitations: no limitations [facility] Head: Yes normocephalic and Yes atraumatic Ears: external ears normal General nose exam: Normal external nose present Face and sinus: Yes face symmetric Mouth: oropharynx normal and moist mucous membranes Throat: Yes uvula midline Eyes Pupils: Equal, round and reactive pupils present Neck Neck: Yes normal visual inspection and Yes supple Chest Chest palpation & inspection: normal inspection of the chest and tenderness pectoral muscle on the left diffusely Resp Effort & Inspection: normal respiratory effort and able to speak in complete sentences Auscultation: clear to auscultation bilaterally Cardio Rate: regular rate Rhythm: regular rhythm Heart sounds: S1 normal heart sound present and S2 normal heart sound present GI Palpation (GI): Soft to palpation and nontender Auscultation: normoactive bowel sounds General: Yes no CVA tenderness Back/Spine/Pelvis Back: no CVA tenderness Skin General skin exam: elasticity normal and turgor normal Neuro General: oriented to person, oriented to place, oriented to time, patient oriented x3, moves all extremities, no focal motor deficits and CN's II-XI intact bilaterally Cranial nerves: Yes Equal, round and reactive pupils present Cognition (Neuro): normal cognition Extrem General: Yes full ROM, Yes no pedal edema and Yes no calf tenderness Left upper extremity: full ROM (increased pain with ROM) Psych Mental Status: mental status grossly normal Affect: normal affect Thought process: Normal thought process present Course Course Course Narrative: RME performed by Devora Luna PA-C. Patient is a 59 year old assigned male at presenting to the emergency department with chest pain. Patient states that he has been having left sided chest pain for days and it is constant. Detailed physical exam and review of systems are deferred to the real estate administrative assistant. EKG, labs, imaging, and swabs ordered. Patient placed back in the waiting room pending room availability and results. Medical Decision Making Medical Decision Making MDM Narrative: Patient is a 59-year-old male with history of T2 DM, HLD, GERD, learning disability/cognitive delays, anxiety and depression presenting to the emergency department with complaint of chest pain which began on Wednesday while he was on his hands and knees. On exam patient is awake, A+Ox3, VS WNL, afebrile, normal neurological exam without focal deficits, physical exam findings as above. Given reported symptoms and physical exam findings, initial differential includes but is not limited to musculoskeletal pain, chest wall strain, costochondritis. Unlikely ACS. Do not suspect PE. EKG shows normal sinus rhythm with no significant change from prior. Labs unremarkable, negative troponin. Chest x-ray notable for 3 mm granuloma right lung, no evidence of pneumonia or pneumothorax. My interpretation is in agreement with the radiologist's interpretation. Physical exam findings are consistent with a musculoskeletal strain. Feel patient is stable for discharge home at this time. Also spoke with patient's robotics application engineer, Mason, who is in agreement with this plan. Will send prescription for Flexeril and topical lidocaine patches. Advised follow up with PCP for ongoing symptoms. Return precautions discussed. Patient verbalized understanding of and agreement with plan. Differential Diagnosis Differential Diagnoses: The differential diagnosis associated with the presentation includes As per [facility] Admission/Observation Consideration of admission/observation: Escalation of care including admission/observation considered Patient would have been admitted to the hospital had their work up had any findings where hospital admission was appropriate and their clinical presentation warranted hospital admission. Lab Data [facility] Lab Attestation statement: I reviewed the patient's lab results. as per [facility] 02/12/25 11:48 02/12/25 11:48 Labs: Lab Results 02/12/25 Range/Units 11:48 WBC 5.2 (4.8-10.8) X10*3/uL RBC 4.56 L (4.60-5.80) X10*6/uL Hgb 13.8 L (14.0-18.0) g/dl Hct 40.1 L (42.0-52.0) % MCV 87.9 (80.0-98.0) fL MCH 30.3 (27.0-33.0) pg MCHC 34.4 (31.0-36.0) g/dl RDW 14.8 (11.0-16.0) % Plt Count 119 L (160-400) X10*3/uL MPV 10.7 (9.4-12.4) fL Immature Gran % (Auto) 0.2 (0.0-0.4) % Neut % (Auto) 49.2 (45-73) % Lymph % (Auto) 40.2 H (20-40) % [place] % (Auto) 7.5 (2-11) % Eos % (Auto) 2.1 (0-4) % Baso % (Auto) 0.8 (0-2) % Lymph # (Auto) 2.1 (1.2-4.9) X10*3/uL [place] # (Auto) 0.4 (0.1-1.2) X10*3/uL Eos # (Auto) 0.1 (0.0-0.4) X10*3/uL Baso # (Auto) 0.0 (0.0-0.2) X10*3/uL Abs Immat Gran (auto) 0.01 (0.00-0.03) X10*3/uL Absolute Neuts (auto) 2.6 (2.0-8.3) x10*3/uL Absolute Nucleated RBC 0.000 (0.0-0.012) X10*3/uL Nucleated RBC % (auto) 0.0 (0.0-0.2) /100WBC PT 11.6 (10.9-12.4) SEC INR 1.0 (0.9-1.1) Sodium 141 (135-145) mmol/L Potassium 4.3 (3.3-5.1) mmol/L Chloride 108 (96-108) mmol/L Carbon Dioxide 25 (22-29) mmol/L Anion Gap 12 (12-20) BUN 17 H (9-16) mg/dL Creatinine 0.90 (0.5-1.4) mg/dL Estim Creat Clear Calc 91.9 Estimated GFR > 60 Random Glucose 123 H (60-115) mg/dL Calcium 9.6 (8.4-10.2) mg/dL Magnesium 2.1 (1.6-2.6) mg/dL Total Bilirubin 0.4 (0.0-1.0) mg/dL AST 35 (5-37) U/L ALT 31 (0-40) U/L Alkaline Phosphatase 79 (39-117) U/L Troponin I High Sens < 2.7 (<3.5-35.0) ng/L Total Protein 7.2 (6.5-8.0) g/dL Albumin 4.2 (3.5-5.0) g/dL Independent Interpretation I performed an independent interpretation of an: EKG (Normal sinus rhythm, rate 65 beats per minute, normal MO interval and QTC, no significant change from prior) and Plain X-Ray (Chest x-ray notable for 3 mm granuloma right lung, no evidence of pneumonia or pneumothorax.) Independent Historian Clinical information obtained from an independent historian. History obtained from or confirmed by: Other (Mason, robotics application engineer) External Record Review External record reviewed: Inpatient record, Office record and Outpatient record Prescription Management I considered prescription management with: Other Discharge Plan Discharge Clinical Impression: Chest wall muscle strain Patient Disposition: Home, Self-Care Instructions: Muscle Strain (DC), Chest Wall Pain (ED) Additional Instructions: You were evaluated in the emergency department today for chest pain. Your evaluation did not show evidence of medical conditions requiring emergent treatment at this time. Your pain is likely due to a muscle strain. You are being prescribed a muscle relaxer which you can use every 8 hours as needed. You are also being prescribed topical lidocaine patches which you can wear for up to 12 hours in a 24 hour period. Do not apply heat directly over the patches. You can also use Tylenol or ibuprofen according to package directions as needed for pain. Follow up with your primary care provider for any ongoing symptoms. Return to the emergency department if you develop worsening pain, shortness of breath or difficulty breathing, palpitations or sensation of heart racing, dizziness, lightheadedness, fainting or any other new or concerning symptoms. Your chest x-ray did show a 3 mm granuloma of your right lung, please follow-up with your primary care provider about this. Prescriptions: New cyclobenzaprine 5 mg tablet 5 mg PO TID PRN (Reason: muscle spasm) Qty: 10 0RF lidocaine 5 % adhesive patch,medicated 1 patch topical DAILY Qty: 15 0RF Rx Instructions: leave on most painful area for up to 12 hrs No Action fluoxetine 40 mg capsule 40 mg PO QAM metformin 500 mg tablet 500 mg PO BID gabapentin 600 mg tablet 600 mg PO BEDTIME trazodone 50 mg tablet 50 mg PO BEDTIME simvastatin 10 mg tablet 10 mg PO BEDTIME omeprazole 40 mg capsule,delayed release(DR/EC) 40 mg PO DAILY omeprazole 40 mg capsule,delayed release(DR/EC) 40 mg PO DAILY amantadine HCl 100 mg capsule 100 mg PO TID risperidone 2 mg tablet 2 mg PO BEDTIME trazodone 100 mg tablet 100 mg PO BEDTIME buspirone 10 mg tablet 10 mg PO QAM fluoxetine 20 mg capsule 20 mg PO DAILY buspirone 15 mg tablet 15 mg PO BEDTIME melatonin 10 mg capsule 10 mg PO BEDTIME Stand Alone Forms: Work/School Release Print Language: Eritrean
[2025-02-12 11:23] VITALS: BP 163/75; PULSE 64; RESP 16; TEMP 37.2; O2SAT 96; BMI 28.0
[2025-02-12 11:54] LABS: MANUAL DIFF FLAG NO
[2025-02-12 11:57] LABS: Basophils Percent Auto 0.8 % (0-2); Eosinophils Absolute Auto 0.1 X10*3/uL (0.0-0.4); Eosinophils Percent Auto 2.1 % (0-4); Hematocrit 40.1 % (42.0-52.0); Hemoglobin 13.8 g/dl (14.0-18.0); Imm Gran Abs Auto 0.01 X10*3/uL (0.00-0.03); Imm Gran Pct Auto 0.2 % (0.0-0.4); Lymphocytes Absolute Auto 2.1 X10*3/uL (1.2-4.9); Lymphocytes Percent Auto 40.2 % (20-40); Mean Corpuscular HGB Conc 34.4 g/dl (31.0-36.0); Mean Corpuscular Hemoglobin 30.3 pg (27.0-33.0); Mean Corpuscular Volume 87.9 fL (80.0-98.0); Mean Platelet Volume 10.7 fL (9.4-12.4); Monocytes Absolute Auto 0.4 X10*3/uL (0.1-1.2); Monocytes Percent Auto 7.5 % (2-11); Neutrophils Absolute Auto 2.6 x10*3/uL (2.0-8.3); Neutrophils Percent Auto 49.2 % (45-73); Platelet Count 119 X10*3/uL (160-400); Red Blood Count 4.56 X10*6/uL (4.60-5.80); Red Cell Distribution Width 14.8 % (11.0-16.0); White Blood Count 5.2 X10*3/uL (4.8-10.8)
[2025-02-12 12:05] LABS: Prothrombin Time 11.6 SEC (10.9-12.4)
[2025-02-12 12:10] LABS: Alanine Aminotransferase 31 U/L (0-40); Albumin Level 4.2 g/dL (3.5-5.0); Alkaline Phosphatase 79 U/L (39-117); Anion Gap 12 (12-20); Aspartate Amino Transferase 35 U/L (5-37); Bilirubin Total 0.4 mg/dL (0.0-1.0); Blood Urea Nitrogen 17 mg/dL (9-16); Calcium 9.6 mg/dL (8.4-10.2); Carbon Dioxide 25 mmol/L (22-29); Chloride 108 mmol/L (96-108); Creatinine Clr Calc Pharmacy 91.9; Estimated Glomerular Filt Rate > 60; Glucose Random 123 mg/dL (60-115); Magnesium 2.1 mg/dL (1.6-2.6); Potassium 4.3 mmol/L (3.3-5.1); Sodium 141 mmol/L (135-145); Total Protein 7.2 g/dL (6.5-8.0)
[2025-02-12 12:19] LABS: Troponin-I High Sensitivity < 2.7 ng/L (<3.5-35.0)
[2025-02-12 13:35] VITALS: PULSE 61; RESP 14; O2SAT 96
[2025-02-12 14:06] VITALS: BP 144/78; PULSE 61; RESP 14; TEMP 36.6; O2SAT 96
--- OUTSIDE RECORDS SUMMARY | 2025-02-12 14:28 | XMS_ITS | Patient Health Record ---
Author Organization [facility] Address [address] [place] [id number] Care Team Providers Care Digging Machine Operator Name Role Phone Charly Mendiola MD Primary Care Provider Merlin Shah [phone] Allergies Allergen (clinical drug ingredient) Drug/Non Drug [...] Problem Status W/U Status Risk Notes Problem 439659830 Gastro-esophagea l reflux disease without esophagitis (K21.9) Active confirmed Problem 555195179 Encounter for screening for malignant neoplasm of colon (Z12.11) Active confirmed Problem 91052065 Change in bowel habits (R19.4) Active confirmed Problem Diverticular disease of colon (414291878) Diverticulosis of large intestine without perforation or abscess without bleeding (K57.30) Active confirmed Problem Encounter for screening for malignant neoplasm of rectum (Z12.12) Active confirmed Problem 68674886 Preprocedural examination (Z01.818) Active confirmed Problem 825244994 Irregular bowel habits (R19.8) Active confirmed Problem 052908004 Abdominal pain, generalized (R10.84) Active confirmed Problem 62380919 Incontinence of feces, unspecified fecal incontinence type [...] OF [place] [address] [place] [address] [phone] [id number] PRUDENCIO, MICHAEL Self - patient is the insured MEDICAID OF [facility] [address] [place] [address] [id number] PRUDENCIO, MICHAEL Self - patient is the insured Medical (General) History Medical History History ICD Code GERD--EGD in 2008-small HH, mild gastrit is, no esophagitis, no Mccollum's Depression Anxiety Denies PA,CVA,Lung disease,renal disease Hyperlipidemia Negative screening colonoscopy in 2017, but with limited prep Learning Disabiliy/Cognitive delays Surgical History Surgery Date(Month/Year) Oral surgery--Gum surgery C-spine disc surgery
== END 2025-02-12 14:06 | disposition home or self-care (01) ==
PROVIDERS: Physician Assistant Medical; Emergency Provider Emergency Medicine; PCP Family Medicine
DX: S29.011A Strain of muscle and tendon of front wall of thorax, initial encounter (principal); X58.XXXA Exposure to other specified factors, initial encounter; R07.89 Other chest pain; F17.210 Nicotine dependence, cigarettes, uncomplicated; Y93.9 Activity, unspecified; Y92.9 Unspecified place or not applicable; Y99.9 Unspecified external cause status; E11.9 Type 2 diabetes mellitus without complications; E78.5 Hyperlipidemia, unspecified; Z79.84 Long term (current) use of oral hypoglycemic drugs; Z79.899 Other long term (current) drug therapy
CPT/HCPCS: 36415; 71046; 80053; 83735; 84484; 85025; 85610; 93005; 99283; 99285

== ENCOUNTER → 2025-02-12 10:19 | Outpatient (BNV) | payer MEDICARE, MEDICAID, SELFPAY | PROVIDERS: Emergency Provider Emergency Medicine; PCP Family Medicine; Visit Provider Internal Medicine Cardiovascular Disease | DX: R94.31 Abnormal electrocardiogram [ECG] [EKG] (principal); R07.9 Chest pain, unspecified | CPT/HCPCS: 93010 ==

== ENCOUNTER → 2025-02-12 11:22 | Outpatient (BNV) | payer MEDICARE, MEDICAID, SELFPAY | PROVIDERS: PCP Family Medicine; Visit Provider Radiology Diagnostic Radiology | DX: R52 Pain, unspecified (principal); M47.895 Other spondylosis, thoracolumbar region | CPT/HCPCS: 71046 ==

== ENCOUNTER 2025-05-17 13:00 | Outpatient (REF) | payer MEDICARE, MEDICAID, SELFPAY ==
[2025-05-17 14:19] LABS: Hemoglobin A1C 152.3636 umol/L
[2025-05-17 14:36] LABS: Cholesterol 190 mg/dL (<200); HDL Cholesterol 43 mg/dL (>40); Triglycerides 72 mg/dL (<150)
== END 2025-05-17 13:01 | disposition home or self-care (01) ==
LOC: HO.LAB 13:00
PROVIDERS: Absent Provider Student in an Organized Health Care Education/Training Program; PCP Family Medicine; Visit Provider Physician Assistant Medical
DX: F41.9 Anxiety disorder, unspecified (principal); E11.9 Type 2 diabetes mellitus without complications; E78.49 Other hyperlipidemia; K21.9 Gastro-esophageal reflux disease without esophagitis; F17.210 Nicotine dependence, cigarettes, uncomplicated; Z71.6 Tobacco abuse counseling
CPT/HCPCS: 36415; 80061; 83036; 96127; 99202

== ENCOUNTER 2025-05-17 13:20 | Outpatient (AMB) | payer MEDICARE, MEDICAID, SELFPAY ==
--- NOTE | 2025-05-17 13:25 | MHC.PC.OV ---
Intake Visit Reasons: 1 Month F/U / Dr Mendiola Allergies Penicillins (PENICILLINS) Allergy (Unknown, Verified 05/16/25 08:10) UNKNOWN bupropion (From WELLBUTRIN) Adverse Reaction (Unknown, Verified 05/16/25 08:10) UNKNOWN Tobacco use date assessed: 05/17/25 Dental Screening Dental Screen Date: 05/17/25 HPI HPI Comments History of Present Illness Details The patient is a 60-year-old male presenting for an initial evaluation and comprehensive assessment at their first appointment. The patient has a history of major depressive disorder managed by a psychiatrist and is currently on multiple medications, including amantadine, buspirone, fluoxetine, melatonin, and risperidone. He has been diagnosed with type 2 diabetes mellitus and currently manages it with metformin 500 mg twice a day, although recent blood work indicates his A1c is up to 7. He also has a history of gastroesophageal reflux disease and hyperlipidemia, with previous labs showing an LDL of 112 and cholesterol of 177. The patient has been advised that his cholesterol needs better control. The patient has a long history of tobacco use, having smoked since he was 8 ? years old, summing up to almost 51 years of smoking. Efforts to reduce smoking have been made, and he reports cutting down significantly. However, he still continues to smoke despite being aware of the risks, including the potential for lung cancer, which he acknowledges. He has been previously given nicotine patches and lozenges, which were not effective. Medical History: - Major Depressive Disorder - Type 2 Diabetes Mellitus - Gastroesophageal Reflux Disease - Hyperlipidemia - Tobacco Use Disorder Surgical History: - No history of past surgeries Medications: - Amantadine 100 mg three times a day for depression - Buspirone 10 mg in the morning and 15 mg in the evening for depression - Fluoxetine 20 mg in the morning and 40 mg in the evening for depression - Melatonin 10 mg at night for insomnia - Risperidone 2 mg at night for depression - Metformin 500 mg twice a day for type 2 diabetes mellitus - Simvastatin 10 mg for hyperlipidemia Family History: - No family history of cancers, heart disease, or diabetes Diagnostic Results: - Labs: A1C 7 from January, Low platelet count, LDL 112, Cholesterol 177 from January of last year Social History: - Tobacco use: Smokes; has been smoking for 51 years since the age of 8 ? - Occupation: Building maintenance - Housing: Shared living arrangement - Substance use: Has quit drinking and drugs [facility] Medical History (Updated 05/17/25 @ 13:49 by Charly Peters MD) Learning disability Type 2 diabetes mellitus (~10/2019) Hyperlipidemia GERD (gastroesophageal reflux disease) Nicotine dependence, cigarettes, uncomplicated Anxiety Depression Acute insomnia Surgical History History of cervical spinal surgery History of oral surgery History of colonoscopy (~07/20/23) History of esophagogastroduodenoscopy (EGD) Family History (Updated 05/17/25 @ 13:24 by Cherie Wilburn MA) Mother No problems noted. Father No problems noted. Social History Housing: House Patient Tobacco Use Status: Current everyday Tobacco user Cigarette Packs Per Day: 0.5 Years Smoked: (onset 15yo, 1/2-1ppd x 44yrs, now 1/2ppd - 30pyh) e-Cigarette/Vaping Use: Currently Using service: No Current occupational status: retired Cognitive needs: No Hearing needs: No Vision needs: No Questionnaire PHQ-9 Over the last 2 weeks, how often have you been bothered by any of the following problems? 1. Little interest or pleasure in doing things: not at all 2. Feeling down, depressed, or hopeless: not at all 3. Trouble falling or staying asleep, or sleeping too much: not at all 4. Feeling tired or having little energy: not at all 5. Poor appetite or overeating: not at all 6. Feeling bad about yourself - or that you are a failure or have let yourself or your family down: not at all 7. Trouble concentrating on things, such as reading the newspaper or watching television: not at all 8. Moving or speaking so slowly that other people could have noticed. Or the opposite - being so fidgety or restless that you have been moving around a lot more than usual: not at all 9. Thoughts that you would be better off or of hurting yourself in some way: not at all Total score: 0 Depression Screening Interpretation: Negative Depression Screening Done: Yes 38241 - PHQ-9 Billing: Yes Source: Developed by Drs. Merlin Bennett, Sophia LoweEmigdio and colleagues, with an educational reynaldo from [employer]. Thrive Questionnaire Date Thrive assessed: 05/17/25 I am a: Patient What is your living situation today?: I have a steady place to live Within the past 12 months, did the food you bought not last and you didn't have the money to get more?: Never true Within the past 12 months, did you worry whether your food would run out before you got money to buy more?: Never true Do you have trouble paying for medicines?: No Do you have trouble getting transportation to medical appointments?: No Do you have trouble paying your heating and electricity bill?: No Do you have trouble taking care of your child, family member or friend?: No Do you have trouble with day-to-day activities such as bathing, preparing meals, shopping, managing finances, etc.?: No Are you currently unemployed and looking for a job?: No Are you interested in more education?: No THRIVE Score: 0 AUDIT C Alcohol Use Questionnaire (AUDIT-C) 1. How often do you have a drink containing alcohol?: Never 3. How often do you have six or more drinks on one occasion?: Never Total Score: 0 Score Reviewed/Action Taken: Yes ALEX-7 AMB Questionnaire ALEX-7 Date ALEX - 7 assessed: 05/17/25 Feeling nervous, anxious, or on edge: 0 = Not at all Not being able to stop or control worryin = Not at all Worrying too much about different things: 0 = Not at all Trouble relaxin = Not at all Being so restless that it is hard to sit still: 0 = Not at all Becoming easily annoyed or irritable: 0 = Not at all Feeling afraid as if something awful might happen: 0 = Not at all Total ALEX-7 score (0-4 normal; 5-9 mild; 10-14 moderate; 15-21 severe): 0 Source: Developed by Drs. Merlin Bennett, Sophia Lowe, Emigdio Orellana and colleagues, with an educational reynaldo from [employer]. ALEX-7 Assessment Billing ALEX-7 Assessment Tool: ALEX-7 Assessment 90975 Review of Systems Const Details: - Constitutional: Denies weight loss - Respiratory: Denies shortness of breath - Cardiovascular: Denies palpitations or chest pain - Gastrointestinal: Denies diarrhea, constipation, abdominal pain - Neurological: Denies headaches - Allergies: Reports penicillin allergy with sickness as reaction All systems reviewed & are unremarkable except as reviewed in HPI and above Physical exam (Primary Care) Tobacco/Smoking Status: Tobacco use Status Tobacco use date assessed 05/17/25 05/17/25 13:25 Patient Tobacco Use Status Current everyday Tobacco 05/17/25 13:25 e-Cigarette/Vaping Use Currently Using 05/17/25 13:25 Are you ready to quit: Yes Tobacco cessation counseling provided: Yes Relapse Prevention: discussed the importance of a supportive environment and discussed extending NRT Number of minutes spent counselin CPT code: 29500 - 4-10 Minutes Depression Screening Interpretation: Negative Thrive Assessment: Date of Thrive Assessment Date Thrive assessed 05/17/25 05/17/25 13:25 Const Other: General: +Alert and oriented, Well nourished, No acute distress. Eye: Pupils are equal, round and reactive to light, Intact accommodation, Extraocular movements are intact, Normal conjunctiva, Vision unchanged. HENT: Normocephalic, Atraumatic, Tympanic membranes are clear, Normal hearing, Oral mucosa is moist, No pharyngeal erythema, Ear canals patent. Respiratory: Lungs CTA bilaterally, No wheeze, Respirations are non-labored. Cardiovascular: Regular rate, Regular rhythm, S1 auscultated, S2 auscultated, No murmur, Good pulses equal in all extremities, Normal peripheral perfusion, No edema. Gastrointestinal: Soft, Non-tender, Non-distended, Normal bowel sounds, No organomegaly. Musculoskeletal: Normal range of motion, Normal strength, No tenderness, No swelling, No deformity, Normal gait. Integumentary: Warm, Dry, [place], Intact. Neurologic: Alert, Oriented, Normal sensory, Normal motor function, No focal defects, Cranial Nerves II-XII are grossly intact, Normal deep tendon reflexes. Psychiatric: Cooperative, Appropriate mood & affect, Normal judgment. Coding Level of Care Code New Pt Level 4 (93982) Diagnoses Anxiety F41.9 Other hyperlipidemia E78.49 Hyperlipidemia type: other hyperlipidemia GERD (gastroesophageal reflux disease) K21.9 Nicotine dependence, cigarettes, uncomplicated F17.210 Type 2 diabetes mellitus without complication, without long-term current use of insulin E11.9 Diabetes mellitus continuous churn buttermaker insulin use: without intermediate use Diabetes mellitus complication status: without complication Additional Codes PHQ-9 - 04345 - PHQ-9 Billing: Yes ([id number]) ALEX-7 Assessment Billing - ALEX-7 Assessment Tool: ALEX-7 Assessment 14195 ([id number]) Vital Signs *Quality* - CPT code: 55298 - 4-10 Minutes ([id number]) Time Spent (min) 40 Assessment & Plan Assessment & Plan (1) Anxiety: Comment: - Continue current medications: Amantidine, Buspirone, Fluoxetine, Melatonin, and Risperidone as managed by psychiatrist. - No changes in psychiatric medications during this visit. Code(s): F41.9 - Anxiety disorder, unspecified Category: Medical (2) Hyperlipidemia: Comment: 3. Hyperlipidemia - Continue Simvastatin 10 mg. - Blood work today to assess cholesterol levels for potential adjustment of medications. Code(s): E78.5 - Hyperlipidemia, unspecified Category: Medical Qualifiers: Hyperlipidemia type: other hyperlipidemia Qualified Code(s): E78.49 - Other hyperlipidemia (3) GERD (gastroesophageal reflux disease): Comment: - No specific management change noted during this visit. - Continue omperazole 40mg Daily Code(s): K21.9 - Gastro-esophageal reflux disease without esophagitis Category: Medical (4) Nicotine dependence, cigarettes, uncomplicated: Comment: (onset 15yo, 1/2-1ppd x 44yrs, now 1/2ppd - 30pyh) - Discussed cessation today, and nicotine patches prescribed - Encouragement given to make lifestyle changes and return in three months for follow-up evaluation on smoking cessation progress. Code(s): F17.210 - Nicotine dependence, cigarettes, uncomplicated Category: Medical (5) Type 2 diabetes mellitus: Onset Date: ~10/2019 Comment: - Continue Metformin 500 mg twice a day. - Blood sugar control appears to be reasonable, but re-evaluation needed due to A1C level of 7. - Plan for follow-up blood work today to check current blood sugar levels. - Return visit in three months for comprehensive evaluation. Code(s): E11.9 - Type 2 diabetes mellitus without complications Category: Medical Qualifiers: Diabetes mellitus intermediate insulin use: without continuous churn buttermaker use Diabetes mellitus complication status: without complication Qualified Code(s): E11.9 - Type 2 diabetes mellitus without complications Plan: Health maintenance: - Smoking cessation counseling with nicotine patches provided. - Follow-up on diabetes and cholesterol management in three months with blood work. - Discussed importance of healthy lifestyle and diet modification. - Recommended quitting smoking to minimize risk for lung cancer and other complications. Patient was informed and verbally consented to the use of an ambient scribe for clinic note documentation during this visit. Plan During the visit, I discussed the importance of smoking cessation with the patient and stressed the severe health risks associated with long-term tobacco use, including the risk of lung cancer. I advised starting higher-dose nicotine patches to help quit smoking and emphasized that lifestyle changes were necessary. We reviewed his current medication regimen, and I noted all psychiatric medications as per management by the psychiatrist. We discussed follow-up blood work to assess and monitor diabetes and cholesterol levels. I highlighted the necessity for regular health checks, including follow-up visits in three months, given his current health status, to review ongoing management strategies. Orders: Orders Lipid Panel Today E11.9 - Type 2 diabetes mellitus without complications Hemoglobin A1c Today E11.9 - Type 2 diabetes mellitus without complications Medications: New nicotine 1 patch transdermal Q24H 28 ea 3RF Patient Instructions: - Continue all current medications unless advised otherwise. - Start using the nicotine patches as prescribed to quit smoking. - Maintain a healthy diet and monitor blood sugars regularly at home. - Return for follow-up visit in three months, or sooner if experiencing new or worsening symptoms. - Complete the scheduled blood work today for diabetes and cholesterol monitoring.
== END 2025-05-17 13:42 | disposition home or self-care (01) ==
LOC: HO.HMCHD 13:20
PROVIDERS: PCP Student in an Organized Health Care Education/Training Program; Visit Provider Student in an Organized Health Care Education/Training Program
DX: F41.9 Anxiety disorder, unspecified (principal); E78.49 Other hyperlipidemia; K21.9 Gastro-esophageal reflux disease without esophagitis; F17.210 Nicotine dependence, cigarettes, uncomplicated; E11.9 Type 2 diabetes mellitus without complications

== ENCOUNTER 2025-07-02 11:11 | Outpatient (AMB) | payer MEDICARE, MEDICAID, SELFPAY ==
[2025-07-02 11:14] VITALS: BP 120/86; PULSE 70; TEMP 35.8; O2SAT 100; BMI 26.6
--- NOTE | 2025-07-02 11:14 | A.OFFPC_ITS ---
Vital Signs 07/02/25 11:14 Height 5 ft 8 in Weight 175 lb 2 oz BMI 26.6 BP 120/86 Blood Pressure Location Lt brachial Position Sitting Pulse 70 Pulse Source Pulse Oximeter Temp 96.5 F L Temp Source Temporal Artery Scan Pulse Oximetry (%) 100 Oxygen Delivery Method Room Air Intake Visit Reasons: Physical Accompanied by: Other Relationship Allergies Penicillins (PENICILLINS) Allergy (Unknown, Verified 07/02/25 11:15) UNKNOWN bupropion (From WELLBUTRIN) Adverse Reaction (Unknown, Verified 07/02/25 11:15) UNKNOWN Tobacco use date assessed: 07/02/25 Dental Screening Dental Screen Date: 07/02/25 Did you have a dental visit in the last 12 months?: Yes Was dental information given to patient?: Patient has dentist HPI HPI Comments History of Present Illness Details History of Present Illness The patient is a 60-year-old male presenting for an annual physical examination. He reports having a cold at the time of the visit. The patient's medical history includes anxiety, which is managed with amantadine, buspirone, fluoxetine, melatonin, and risperidone, as prescribed by his psychiatrist. He reports that his anxiety is stable. He has a history of type 2 diabetes mellitus, for which he takes metformin twice daily. His last HbA1c was 5.8%, indicating good glycemic control. He is also treated for hyperlipidemia with simvastatin and for acid reflux with omeprazole. Social history is significant for tobacco use; the patient is trying to quit. He is on a fixed income, which may pose a challenge for affording nsje-buk-[id number] nicotine patches. Regarding health maintenance, his last colonoscopy was normal, and he is not due for another until 2032. He undergoes annual lung cancer screening with a low- dose CT scan, with the next one due in August. His last scan on September 15, 2024, reportedly had normal results. Medical History: - Sleep disorder - Anxiety - Hyperlipidemia - Gastroesophageal reflux disease - Tobacco use - Type 2 diabetes mellitus Medications: - Trazodone for sleep - Amantadine for anxiety - Buspirone for anxiety - Fluoxetine for anxiety - Melatonin for anxiety - Risperidone for anxiety - Simvastatin for hyperlipidemia - Omeprazole for acid reflux - Metformin twice a day for diabetes Diagnostic Results: - Labs: Recent HbA1c was 5.8%. - Imaging: Low-dose CT scan of the lungs on 09/15/2024 reportedly showed nice results. Social History - Substance Use: The patient has a histo ry of smoking and is currently trying to quit. - Socioeconomic Factors: The patient is on a fixed income, which may affect his ability to afford [id number] smoking cessation aids like nicotine patches. Health Maintenance - Counseling: Discussed smoking cessatio n, emphasizing the increased infection risk associated with smoking. - Vaccinations: The patient was counsele d on the importance of the flu shot, after which he agreed to receive it during the visit. He was also advised to get a COVID-19 shot. - Screening Labs: Ordered a comprehensiv e set of labs including CBC, electrolytes, hepatitis panel, HIV, cholesterol, syphilis panel, thyroid panel, and vitamin D. - Cancer Screening: The patient is due f or his annual low-dose CT scan for lung cancer screening in August. He is up to date with his colonoscopies, with the next one not due until 2032. Patient was informed and verbally consented to the use of an ambient scribe for clinic note documentation during this visit. Vital signs reviewed. Comprehensive history, review of systems, and physical exam completed. Medications, allergies, and problem list reviewed and updated. Counseling provided on nutrition, regular exercise, sleep hygiene, and moderation of alcohol use. Discussed age-appropriate screenings (mammogram, colonoscopy, Pap, bone density) and immunizations (flu, COVID, shingles, Tdap). Screened for depression, fall risk, and home safety; no current concerns. Discussed stress management, dental and vision care, and importance of ongoing preventive follow-up. Routine labs ordered for metabolic and lipid screening. Patient educated on healthy lifestyle and agrees with the plan. COUNT INCLUDES THE [facility] Medical History Learning disability Type 2 diabetes mellitus (~10/2019) Hyperlipidemia GERD (gastroesophageal reflux disease) Nicotine dependence, cigarettes, uncomplicated Anxiety Depression Acute insomnia Surgical History History of cervical spinal surgery History of oral surgery History of colonoscopy (~07/20/23) History of esophagogastroduodenoscopy (EGD) Family History Mother No problems noted. Father No problems noted. Social History Housing: House Patient Tobacco Use Status: Current everyday Tobacco user Cigarette Packs Per Day: 0.5 Years Smoked: (onset 15yo, 1/2-1ppd x 43yrs, now 1/2ppd - 30pyh) e-Cigarette/Vaping Use: Currently Using service: No Current occupational status: retired Cognitive needs: No Hearing needs: No Vision needs: Yes (glasses) Questionnaire PHQ-9 Over the last 2 weeks, how often have you been bothered by any of the following problems? 1. Little interest or pleasure in doing things: not at all 2. Feeling down, depressed, or hopeless: not at all 3. Trouble falling or staying asleep, or sleeping too much: not at all 4. Feeling tired or having little energy: not at all 5. Poor appetite or overeating: not at all 6. Feeling bad about yourself - or that you are a failure or have let yourself or your family down: not at all 7. Trouble concentrating on things, such as reading the newspaper or watching television: not at all 8. Moving or speaking so slowly that other people could have noticed. Or the opposite - being so fidgety or restless that you have been moving around a lot more than usual: not at all 9. Thoughts that you would be better off or of hurting yourself in some way: not at all Total score: 0 Depression Screening Interpretation: Negative Depression Screening Done: Yes 08978 - PHQ-9 Billing: Yes Source: Developed by Drs. Merlin Bennett, Sophia Lowe, Emigdio Orellana and colleagues, with an educational reynaldo from [employer]. Thrive Questionnaire Date Thrive assessed: 07/02/25 I am a: Patient What is your living situation today?: I have a steady place to live Within the past 12 months, did the food you bought not last and you didn't have the money to get more?: Never true Within the past 12 months, did you worry whether your food would run out before you got money to buy more?: Never true Do you have trouble paying for medicines?: No Do you have trouble getting transportation to medical appointments?: No Do you have trouble paying your heating and electricity bill?: No Do you have trouble taking care of your child, family member or friend?: No Do you have trouble with day-to-day activities such as bathing, preparing meals, shopping, managing finances, etc.?: No Are you currently unemployed and looking for a job?: No Are you interested in more education?: No THRIVE Score: 0 AUDIT C Alcohol Use Questionnaire (AUDIT-C) 1. How often do you have a drink containing alcohol?: Never 3. How often do you have six or more drinks on one occasion?: Never Total Score: 0 Score Reviewed/Action Taken: Yes ALEX-7 AMB Questionnaire ALEX-7 Date ALEX - 7 assessed: 07/02/25 Feeling nervous, anxious, or on edge: 0 = Not at all Not being able to stop or control worryin = Not at all Worrying too much about different things: 0 = Not at all Trouble relaxin = Not at all Being so restless that it is hard to sit still: 0 = Not at all Becoming easily annoyed or irritable: 0 = Not at all Feeling afraid as if something awful might happen: 0 = Not at all Total ALEX-7 score (0-4 normal; 5-9 mild; 10-14 moderate; 15-21 severe): 0 Source: Developed by Drs. Merlin Bennett, Sophia Lowe, Emigdio Orellana and colleagues, with an educational reynaldo from [employer]. ALEX-7 Assessment Billing ALEX-7 Assessment Tool: ALEX-7 Assessment 62139 Review of Systems Narrative Review of Systems - General: Reports having a cold. - Psychiatric: Reports his anxiety is doing fine and is stable. All systems reviewed & are unremarkable except as reviewed in HPI and above Physical exam (Primary Care) Vital Signs: Last Vital Signs Temp 96.5 F L 07/02/25 11:14 Pulse 70 07/02/25 11:14 BP 120/86 07/02/25 11:14 Pulse Ox 100 07/02/25 11:14 Oxygen Delivery Method Room Air 07/02/25 11:14 BMI result Body Mass Index 26.6 Tobacco/Smoking Status: Tobacco use Status Tobacco use date assessed 07/02/25 07/02/25 11:16 Patient Tobacco Use Status Current everyday Tobacco 07/02/25 11:16 e-Cigarette/Vaping Use Currently Using 07/02/25 11:16 PHQ-9: PHQ-9 Score PHQ-9: Total score 0 07/02/25 11:39 Depression Screening Interpretation: Negative Thrive Assessment: Date of Thrive Assessment Date Thrive assessed 07/02/25 07/02/25 11:16 Narrative Physical Exam General: Alert and oriented, Well nourished, No acute distress. Eye: Pupils are equal, round and reactive to light, Intact accommodation, Extraocular movements are intact, Normal conjunctiva, Vision unchanged. HENT: Normocephalic, Atraumatic, Tympanic membranes are clear, Normal hearing, Oral mucosa is moist, No pharyngeal erythema, Ear canals patent. Respiratory: Lungs CTA bilaterally, No wheeze, Respirations are non-labored. Cardiovascular: Regular rate, Regular rhythm, S1 auscultated, S2 auscultated, No murmur, Good pulses equal in all extremities, Normal peripheral perfusion, No edema. Gastrointestinal: Soft, Non-tender, Non-distended, Normal bowel sounds, No organomegaly. Musculoskeletal: Normal range of motion, Normal strength, No tenderness, No swelling, No deformity, Normal gait. Integumentary: Warm, Dry, [place], Intact. Neurologic: Alert, Oriented, Normal sensory, Normal motor function, No focal defects, Cranial Nerves II-XII are grossly intact, Normal deep tendon reflexes. Psychiatric: Cooperative, Appropriate mood & affect, Normal judgment. Office Procedures Flu Questionnaire Does the patient have a severe egg allergy?: No Does the patient have severe life threatening allergies?: No Does the patient have a fever or illness today?: No Has the patient ever had Guillain-[place] Syndrome?: No Has the patient ever had any past reaction to a flu shot?: No Immunizations Fluarix [id number] (PF) 45 mcg (15 mcg x 3)/0.5 mL IM syringe Performing Provider: Charly Peters MD Performing Location: [facility] Administered by: Leda Rodriguez CMA on 07/02/25 11:23 Dose Route Admin Location Dispensed Lot Number Expiration Date [facility] [employer] Sales 0.5 mL IM Left Deltoid 0.5 mL [id number] 02/12/26 [id number] [employer] VIS Given Date VIS Provided VIS Publication Date 07/02/25 Single Vaccine 24 Eligibility Eligibility Date Funding Source Not [facility] Eligible 07/02/25 Private Coding Level of Care Code Est Pt Level 3 (81585) Est Pt Prev Care 40-64y(28747) Diagnoses Anxiety F41.9 Other hyperlipidemia E78.49 Hyperlipidemia type: other hyperlipidemia Type 2 diabetes mellitus without complication, without long-term current use of insulin E11.9 Diabetes mellitus complication status: without complication Diabetes mellitus senior living insulin use: without senior living use Gastroesophageal reflux disease without esophagitis K21.9 Esophagitis presence: without esophagitis Nicotine dependence, cigarettes, uncomplicated F17.210 Additional Codes ALEX-7 Assessment Billing - ALEX-7 Assessment Tool: ALEX-7 Assessment 15003 ([id number]) PHQ-9 - 61849 - PHQ-9 Billing: Yes ([id number]) Comment [id number] Assessment & Plan Assessment & Plan (1) Anxiety: Comment: - Continue current medications: Amantidine, Buspirone, Fluoxetine, Melatonin, and Risperidone as managed by psychiatrist. - No changes in psychiatric medications during this visit. Code(s): F41.9 - Anxiety disorder, unspecified Category: Medical (2) Hyperlipidemia: Comment: - Continue Simvastatin 10 mg. - Blood work stable Code(s): E78.5 - Hyperlipidemia, unspecified Category: Medical Qualifiers: Hyperlipidemia type: other hyperlipidemia Qualified Code(s): E78.49 - Other hyperlipidemia (3) Type 2 diabetes mellitus: Onset Date: ~10/2019 Comment: - The patient's diabetes is well-controlled, with a recent HbA1c of 5.8% from over 8 - He will continue taking metformin. Code(s): E11.9 - Type 2 diabetes mellitus without complications Category: Medical Qualifiers: Diabetes mellitus complication status: without complication Diabetes mellitus senior living insulin use: without termite helper use Qualified Code(s): E11.9 - Type 2 diabetes mellitus without complications (4) GERD (gastroesophageal reflux disease): Comment: - No specific management change noted during this visit. - Continue omperazole 40mg Daily Code(s): K21.9 - Gastro-esophageal reflux disease without esophagitis Category: Medical Qualifiers: Esophagitis presence: without esophagitis Qualified Code(s): K21.9 - Gastro-esophageal reflux disease without esophagitis (5) Nicotine dependence, cigarettes, uncomplicated: Comment: - The patient continues to smoke but is trying to quit. - Counseling was provided on the increased risk of infections and the importance of cessation. - The plan is for him to get the flu shot today and the COVID shot at a pharmacy. - He was advised about jaqo-xjo-hptlxnu nicotine patches but financial constraints were noted. Code(s): F17.210 - Nicotine dependence, cigarettes, uncomplicated Category: Medical Plan: Health Maintenance: - Counseling: Discussed smoking cessation, emphasizing the increased infection risk associated with smoking. - Vaccinations: The patient was counseled on the importance of the flu shot, after which he agreed to receive it during the visit. He was also advised to get a COVID-19 shot. - Screening Labs: Ordered a comprehensive set of labs including CBC, e lectrolytes, hepatitis panel, HIV, cholesterol, syphilis panel, thyroid panel, and vitamin D. - Cancer Screening: The patient is due for his annual low-dose CT scan for lung cancer screening in August. He is up to date with his colonoscopies, with the next one not due until 2032. Patient was informed and verbally consented to the use of an ambient scribe for clinic note documentation during this visit. Vital signs reviewed. Comprehensive history, review of systems, and physical exam completed. Medications, allergies, and problem list reviewed and updated. Counseling provided on nutrition, regular exercise, sleep hygiene, and moderation of alcohol use. Discussed age-appropriate screenings (mammogram, colonoscopy, Pap, bone density) and immunizations (flu, COVID, shingles, Tdap). Screened for depression, fall risk, and home safety; no current concerns. Discussed stress management, dental and vision care, and importance of ongoing preventive follow-up. Routine labs ordered for metabolic and lipid screening. Patient educated on healthy lifestyle and agrees with the plan. Plan I reviewed the patient's chronic conditions, including his well-controlled type 2 diabetes, anxiety, hyperlipidemia, and GERD. I informed him that because all conditions appear stable, I will not be making any changes to his current medication regimen. We extensively discussed his ongoing tobacco use. I emphasized that because his smoking history has affected his lungs, he is more susceptible to severe infections. I explained that the influenza vaccine works by introducing a small, inactive part of the virus to prepare his body to fight a future infection, thereby preventing severe illness. After this discussion, he consented to receiving the flu shot today. I also advised him to get the COVID-19 vaccine. I informed the patient that as part of his annual physical, we will be ordering a full panel of labs. We confirmed he is due for his annual lung cancer screening CT in August. Given his clinical stability, we agreed to cancel his upcoming short-term follow-up and schedule a new appointment in 5-6 months. Orders: Orders Influenza [id number] Immunization Today Z23 - Encounter for immunization Comprehensive Met. Panel Today Z00.00 - Encounter for general adult medical examination without abnormal findings Hemoglobin A1c Today Z00.00 - Encounter for general adult medical examination without abnormal findings HIV Ab/Ag Today Z00.00 - Encounter for general adult medical examination without abnormal findings Microalbumin, Random (w Creat) Today Z00.00 - Encounter for general adult medical examination without abnormal findings TSH reflex Free T4 Today Z00.00 - Encounter for general adult medical examination without abnormal findings Complete Blood Count Auto Diff Today Z00.00 - Encounter for general adult medical examination without abnormal findings Lipid Panel Today Z00.00 - Encounter for general adult medical examination without abnormal findings Syphilis Screen Today Z00.00 - Encounter for general adult medical examination without abnormal findings Vitamin D 25-OH Total Today Z00.00 - Encounter for general adult medical examination without abnormal findings Patient Instructions: - Continue to take your current medications for anxiety, cholesterol, acid reflux, sleep, and diabetes as prescribed. - We will give you the flu shot in the office today. - Please go to a pharmacy to get your COVID shot. - Please go to the lab to have your blood drawn for the tests we ordered today. - Continue your efforts to stop smoking. - Remember to complete your yearly CT scan for lung cancer screening in August. - You can cancel your next appointment and reschedule it for 5-6 months from now.
== END 2025-07-02 11:42 | disposition home or self-care (01) ==
LOC: HO.HMCHD 11:11
PROVIDERS: PCP Student in an Organized Health Care Education/Training Program; Visit Provider Student in an Organized Health Care Education/Training Program
DX: Z00.00 Encounter for general adult medical examination without abnormal findings (principal); F41.9 Anxiety disorder, unspecified; E11.9 Type 2 diabetes mellitus without complications; E78.49 Other hyperlipidemia; K21.9 Gastro-esophageal reflux disease without esophagitis; F17.210 Nicotine dependence, cigarettes, uncomplicated; Z23 Encounter for immunization

== ENCOUNTER → 2025-07-02 11:11 | Outpatient (BNVA) | payer MEDICARE, MEDICAID, SELFPAY | PROVIDERS: PCP Student in an Organized Health Care Education/Training Program; Visit Provider Student in an Organized Health Care Education/Training Program | DX: Z00.00 Encounter for general adult medical examination without abnormal findings (principal); Z13.228 Encounter for screening for other metabolic disorders; K21.9 Gastro-esophageal reflux disease without esophagitis; E11.9 Type 2 diabetes mellitus without complications; E78.49 Other hyperlipidemia; F41.9 Anxiety disorder, unspecified; F17.210 Nicotine dependence, cigarettes, uncomplicated; Z23 Encounter for immunization; Z13.30 Encounter for screening examination for mental health and behavioral disorders, unspecified | CPT/HCPCS: 36415; 80053; 80061; 82306; 83036; 84443; 85025; 86780; 87389; 90471; 90656; 96127; 99396 ==

== ENCOUNTER 2025-07-02 12:25 | Outpatient (REF) | payer MEDICARE, MEDICAID, SELFPAY ==
[2025-07-02 13:26] LABS: MANUAL DIFF FLAG NO
[2025-07-02 13:46] LABS: Hematocrit 43.5 % (42.0-52.0); Hemoglobin 14.8 g/dl (14.0-18.0); Imm Gran Abs Auto 0.03 X10*3/uL (0.00-0.03); Imm Gran Pct Auto 0.5 % (0.0-0.4); Lymphocytes Absolute Auto 2.2 X10*3/uL (1.2-4.9); Mean Corpuscular HGB Conc 34.0 g/dl (31.0-36.0); Mean Corpuscular Hemoglobin 30.8 pg (27.0-33.0); Mean Corpuscular Volume 90.6 fL (80.0-98.0); NRBC Abs Auto 0.000 X10*3/uL (0.0-0.012); NRBC Pct Auto 0.0 /100WBC (0.0-0.2); Platelet Count 149 X10*3/uL (160-400); Red Blood Count 4.80 X10*6/uL (4.60-5.80); White Blood Count 6.1 X10*3/uL (4.8-10.8)
[2025-07-02 14:12] LABS: Alanine Aminotransferase 28 U/L (0-40); Albumin Level 4.5 g/dL (3.5-5.0); Alkaline Phosphatase 101 U/L (39-117); Anion Gap 10 (12-20); Aspartate Amino Transferase 33 U/L (5-37); Blood Urea Nitrogen 20 mg/dL (9-16); Calcium 10.1 mg/dL (8.4-10.2); Carbon Dioxide 24 mmol/L (22-29); Chloride 109 mmol/L (96-108); Cholesterol 154 mg/dL (<200); Estimated Glomerular Filt Rate > 60; HDL Cholesterol 43 mg/dL (>40); Potassium 4.3 mmol/L (3.3-5.1); Sodium 139 mmol/L (135-145); Total Protein 7.9 g/dL (6.5-8.0); Triglycerides 77 mg/dL (<150)
--- OUTSIDE RECORDS SUMMARY | 2025-07-03 00:55 | XMS_ITS | Patient Health Record ---
Author Organization [facility] Address [address] [place] [id number] Care Team Providers [facility] [place] Program Coordinator Name Role Phone Maury (RETIRED) Charly BARKER Primary Care Provider Unavailable Merlin Levy Unavailable [phone] Allergies Allergen (clinical drug ingredient) Drug/Non Drug Allergy documented on EMR Reaction Allergy Type Onset Date Status Wellbutrin seizures Drug Allergy Active Penicillin Unknown Drug Allergy Active Reason For Referral No Information Medications Medication SIG (Take, Route, Frequency, Duration) Notes Start Date End Date Status Omeprazole 40 MG Capsule Delayed Release 1 capsule 30 minutes before morning meal Orally Once a day; Duration: 30 day(s) Active Aspirin 81 81 MG Tablet Delayed Release 1 tablet Orally Once a day; Duration: 30 day(s) Not-Taking/PRN traZODone HCl 50 MG Tablet 1 tablet at bedtime as needed Orally Once a day; Duration: 30 day(s) Active Gabapentin 600 MG Tablet 1 tablet Orally Once a day; Duration: 30 day(s) Active Amantadine HCl 100 MG Capsule 1 tablet Orally once a day Active metFORMIN HCl ER 500 MG Tablet Extended Release 24 Hour 1 tablet with evening meal Orally Once a day; Duration: 30 day(s) Active risperiDONE 2 MG Tablet 1 tablet Orally Once a day Active Simvastatin 80 MG Tablet TAKE 1 TABLET BY MOUTH ONCE A DAY Oral; Duration: 90 Active Melatonin 3 MG Tablet 1 tablet at bedtim e as needed with food Orally Once a day Active busPIRone HCl 10 MG Tablet 1 tablet Orally once a day Active FLUoxetine HCl 60 MG Tablet 1 capsule Orally Once a day Active Immunizations Vaccine Route Administration Date Status Comme nts Influenza Unknown 04/21/2023 Refused Social History Social History Additional Details Category Social Info Options Details Miscellaneous: Marital status: single Occupation: [employer] Hand [employer] Notes: Smoker 1 1/2 ppd; no alcohol presently, 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; 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 Smoker 1 1/2 ppd; no alcohol > 20 yrs, 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; 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 Problems Problem Type SNOMED Code ICD Code Onset Dates Problem Status W/U Status Risk Notes Problem Gastro-esophageal reflux disease without esophagitis (350159053) Gastro-esophageal reflux disease without esophagitis (K21.9) Active confirmed Problem Screening for malignant neoplasm of colon (377868621) Encounter for screening for malignant neoplasm of colon (Z12.11) Active confirmed Problem Change in bowel habit (64059848) Change in bowel habits (R19.4) Active confirmed Problem Diverticular disease of colon (344872701) Diverticulosis of large intestine without perforation or abscess without bleeding (K57.30) Active confirmed Problem Screening for malignant neoplasm of rectum (928000113) Encounter for screening for malignant neoplasm of rectum (Z12.12) Active confirmed Problem Preprocedural examination (457355568648409) Preprocedural examination (Z01.818) Active confirmed Problem Irregular bowel habits (723191055) Irregular bowel habits (R19.8) Active confirmed Problem Generalized abdominal pain (872954513) Abdominal pain, generalized (R10.84) Active confirmed Problem Incontinence of feces (17080377) Incontinence of feces, unspecified fecal incontinence type [...] OF [place] [address] [place] [address] [phone] [id number] MICHAEL FLANNERY Self - patient is the insured MEDICAID OF [facility] [address] [place] [address] [phone] [id number] PRUDENCIO, MICHAEL Self - patient is the insured Medical (General) History Medical History History ICD Code GERD--EGD in 2009-small HH, mild gastrit is, no esophagitis, no Mccollum's Depression Anxiety Denies HI,CVA,Lung disease,renal disease Hyperlipidemia Negative screening colonoscopy in 2017, but with limited prep Learning Disabiliy/Cognitive delays Surgical History Surgery Date(Month/Year) Oral surgery--Gum surgery C-spine disc surgery
[2025-07-03 08:17] LABS: HIV Num 1 0.05 S/CO (0.00-0.99)
[2025-07-03 08:31] LABS: Syphilis Screen Nonreactive (Nonreactive)
== END 2025-07-02 12:26 | disposition home or self-care (01) ==
LOC: HO.10HDL 12:25
PROVIDERS: Visit Provider Student in an Organized Health Care Education/Training Program
DX: Z13.89 Encounter for screening for other disorder (principal)
CPT/HCPCS: 36415; 80053; 80061; 82306; 83036; 84443; 85025; 86780; 87389